=== PATIENT | female | born 1950 | race Caucasian/White ===

== ENCOUNTER → 2021-05-11 09:34 | Outpatient (CLI) | payer MEDICARE, OTHER, SELFPAY ==
[2021-05-11 12:16] LABS: ALB/GLOB Ratio 1.1 RATIO (0.9-2.4); AST(SGOT) 17 U/L (15-37); Alanine Aminotransfer ALT/SGPT 20 U/L (13-56); Albumin, Serum 3.9 g/dL (3.2-5.0); Alkaline Phosphatase 50 U/L (45-117); Anion Gap 4 (5-15); BUN 17 mg/dL (7-18); BUN/Creat Ratio 25.3 RATIO (10-20); Calcium,Total 9.2 mg/dL (8.5-10.1); Chloride 106 mmol/L (98-107); Creatinine, Serum 0.67 mg/dL (0.55-1.02); EST Glomerular Filtration Rate 91 mL/min (>60); Est Glom Filt Rate - Afr Amer 111 mL/min (>60); Globulin 3.5 g/dL (2.2-4.2); Glucose 78 mg/dL (74-106); Potassium 5.2 mmol/L (3.5-5.1); Protein, Total 7.4 g/dL (6.4-8.2); Sodium Level 140 mmol/L (136-145)
[2021-05-11 12:19] LABS: Vitamin D,25 Hydroxy 31.5 ng/mL
== END ==
PROVIDERS: PCP Family Medicine; Referring Provider Physician Assistant; Visit Provider Physician Assistant
DX: E55.9 Vitamin D deficiency, unspecified (principal); M81.0 Age-related osteoporosis without current pathological fracture
CPT/HCPCS: 36415; 80053; 82306

== ENCOUNTER → 2021-05-31 | Outpatient (CLI) | payer MEDICARE, OTHER, SELFPAY ==
[2021-05-31 09:54] LABS: Mucous, Urine 0 SEEN /hpf (<or=2+); Squamous Epithelial Cells - UA 0 SEEN /hpf (5-10)
[2021-05-31 12:20] LABS: Color, Urine Yellow (Yellow); Glucose, Dipstick Normal (Normal); Ketone-Dipstick Negative (Negative); Leukocyte Esterase-Dipstick 500 /ul (Negative); Nitrite-Dipstick Positive (Negative); Occult Blood-Urine 25 /ul (Negative); Protein-Dipstick Negative (Negative); Urine Clarity Clear (Clear); Urine Urobilinogen 4 mg/dl (Normal)
[2021-05-31 12:22] LABS: Urine Bilirubin Dipstick 3 mg/dL (Negative)
[2021-05-31 12:26] LABS: White Blood Cells 5-10 SEEN /hpf (0-5)
[2021-05-31 12:27] LABS: Bacteria 1+ /hpf (None Seen); Red Blood Cells-Urine 0-5 SEEN /hpf (0-5)
== END | disposition home or self-care (01) ==
PROVIDERS: PCP Family Medicine; Referring Provider Nurse Practitioner Family; Visit Provider Nurse Practitioner Family
DX: R30.0 Dysuria (principal)
CPT/HCPCS: 81001; 87086; 87088

== ENCOUNTER → 2021-06-14 | Outpatient (CLI) | payer MEDICARE, OTHER, SELFPAY ==
[2021-06-14 10:57] LABS: Bacteria 0 SEEN /hpf (None Seen); Mucous, Urine 0 SEEN /hpf (<or=2+); Red Blood Cells-Urine 0 SEEN /hpf (0-5); White Blood Cells 0 SEEN /hpf (0-5)
[2021-06-14 12:36] LABS: Color, Urine Yellow (Yellow); Glucose, Dipstick Normal (Normal); Ketone-Dipstick Negative (Negative); Leukocyte Esterase-Dipstick Negative /ul (Negative); Nitrite-Dipstick Negative (Negative); Occult Blood-Urine Negative /ul (Negative); Protein-Dipstick Negative (Negative); Urine Bilirubin Dipstick Negative (Negative); Urine Clarity Clear (Clear); Urine Urobilinogen Normal (Normal)
[2021-06-14 13:06] LABS: Squamous Epithelial Cells - UA 0-5 SEEN /hpf (5-10)
== END | disposition home or self-care (01) ==
LOC: LABSPEC 10:56
PROVIDERS: PCP Family Medicine; Referring Provider Family Medicine; Visit Provider Family Medicine
DX: N30.00 Acute cystitis without hematuria (principal)
CPT/HCPCS: 81001

== ENCOUNTER 2021-08-25 10:00 | Outpatient (CLI) | payer MEDICARE, OTHER, SELFPAY ==
[2021-08-25 10:03] LABS: Bacteria 0 SEEN /hpf (None Seen); Mucous, Urine 0 SEEN /hpf (<or=2+)
[2021-08-25 12:26] LABS: Color, Urine Yellow (Yellow); Glucose, Dipstick Normal (Normal); Ketone-Dipstick Negative (Negative); Leukocyte Esterase-Dipstick 100 /ul (Negative); Nitrite-Dipstick Positive (Negative); Occult Blood-Urine 250 /ul (Negative); Protein-Dipstick 15 mg/dl (Negative); Urine Bilirubin Dipstick Negative (Negative); Urine Clarity Sl. Cloudy (Clear); Urine Urobilinogen Normal (Normal)
[2021-08-25 12:37] LABS: Red Blood Cells-Urine 25-50 SEEN /hpf (0-5); Squamous Epithelial Cells - UA 0-5 SEEN /hpf (5-10); White Blood Cells 10-25 SEEN /hpf (0-5)
== END 2021-08-25 23:59 | disposition short-term general hospital (02) ==
LOC: LABSPEC 10:02
PROVIDERS: PCP Family Medicine; Referring Provider Physician Assistant; Visit Provider Physician Assistant
DX: N39.0 Urinary tract infection, site not specified (principal); R30.0 Dysuria
CPT/HCPCS: 81001; 87077; 87086; 87088

== ENCOUNTER 2021-10-19 15:37 | Outpatient (CLI) | payer MEDICARE, OTHER, SELFPAY ==
[2021-10-19 15:39] LABS: Mucous, Urine 0 SEEN /hpf (<or=2+)
[2021-10-19 16:40] LABS: Color, Urine Yellow (Yellow); Glucose, Dipstick Normal (Normal); Ketone-Dipstick Negative (Negative); Leukocyte Esterase-Dipstick 500 /ul (Negative); Nitrite-Dipstick Positive (Negative); Occult Blood-Urine 150 /ul (Negative); Protein-Dipstick Negative (Negative); Urine Bilirubin Dipstick Negative (Negative); Urine Clarity Sl. Cloudy (Clear); Urine Urobilinogen 1 mg/dl (Normal)
[2021-10-19 16:53] LABS: Amorphous Sediment 1+ PHOS; Bacteria RARE /hpf (None Seen); Red Blood Cells-Urine 10-25 SEEN /hpf (0-5); Squamous Epithelial Cells - UA 0-5 SEEN /hpf (5-10); White Blood Cells 25-50 SEEN /hpf (0-5)
== END 2021-10-19 23:59 | disposition home or self-care (01) ==
LOC: LABSPEC 15:38
PROVIDERS: PCP Family Medicine; Referring Provider Physician Assistant; Visit Provider Physician Assistant
DX: N39.0 Urinary tract infection, site not specified (principal); R30.0 Dysuria
CPT/HCPCS: 81001; 87086

== ENCOUNTER 2021-11-10 11:21 | Outpatient (CLI) | payer MEDICARE, OTHER, SELFPAY ==
[2021-11-10 11:23] LABS: Bacteria 0 SEEN /hpf (None Seen); Mucous, Urine 0 SEEN /hpf (<or=2+); Red Blood Cells-Urine 0 SEEN /hpf (0-5); Squamous Epithelial Cells - UA 0 SEEN /hpf (5-10); White Blood Cells 0 SEEN /hpf (0-5)
[2021-11-10 12:36] LABS: Color, Urine Yellow (Yellow); Glucose, Dipstick Normal (Normal); Ketone-Dipstick Negative (Negative); Leukocyte Esterase-Dipstick Negative /ul (Negative); Nitrite-Dipstick Negative (Negative); Occult Blood-Urine Negative /ul (Negative); Protein-Dipstick Negative (Negative); Urine Bilirubin Dipstick Negative (Negative); Urine Clarity Sl. Cloudy (Clear); Urine Urobilinogen Normal (Normal)
== END 2021-11-10 23:59 | disposition home or self-care (01) ==
PROVIDERS: PCP Family Medicine; Visit Provider Physician Assistant
DX: N39.0 Urinary tract infection, site not specified (principal)
CPT/HCPCS: 81001

== ENCOUNTER 2021-11-14 14:04 | Outpatient (CLI) | payer MEDICARE, OTHER, SELFPAY ==
[2021-11-14 15:24] LABS: Calcium,Total 8.6 mg/dL (8.5-10.1)
== END 2021-11-14 23:59 | disposition home or self-care (01) ==
LOC: BIMLAB 14:06
PROVIDERS: PCP Family Medicine; Referring Provider Family Medicine; Visit Provider Family Medicine
DX: M81.0 Age-related osteoporosis without current pathological fracture (principal)
CPT/HCPCS: 36415; 82310

== ENCOUNTER → 2022-06-19 | Outpatient (CLI) | payer MEDICARE, OTHER, SELFPAY ==
[2022-06-19 10:53] LABS: ALB/GLOB Ratio 1.1 RATIO (0.9-2.4); AST(SGOT) 16 U/L (15-37); Alanine Aminotransfer ALT/SGPT 21 U/L (13-56); Albumin, Serum 3.9 g/dL (3.2-5.0); Alkaline Phosphatase 53 U/L (45-117); Anion Gap 3 (5-15); BUN 19 mg/dL (7-18); BUN/Creat Ratio 29.3 RATIO (10-20); Calcium,Total 9.4 mg/dL (8.5-10.1); Chloride 107 mmol/L (98-107); Creatinine, Serum 0.65 mg/dL (0.55-1.02); EST Glomerular Filtration Rate 95 mL/min (>60); Est Glom Filt Rate - Afr Amer 115 mL/min (>60); Globulin 3.5 g/dL (2.2-4.2); Glucose 80 mg/dL (74-106); Potassium 5.2 mmol/L (3.5-5.1); Protein, Total 7.4 g/dL (6.4-8.2); Sodium Level 142 mmol/L (136-145)
[2022-06-19 10:54] LABS: Vitamin D,25 Hydroxy 42.1 ng/mL
== END | disposition home or self-care (01) ==
LOC: BIMLAB 09:33
PROVIDERS: PCP Family Medicine; Referring Provider Family Medicine; Visit Provider Family Medicine
DX: M81.0 Age-related osteoporosis without current pathological fracture (principal)
CPT/HCPCS: 36415; 80053; 82306

== ENCOUNTER → 2022-09-06 | Outpatient (CLI) | payer MEDICARE, OTHER, SELFPAY ==
[2022-09-06 16:11] LABS: Mucous, Urine 0 SEEN /hpf (<or=2+); Red Blood Cells-Urine 0 SEEN /hpf (0-5); Squamous Epithelial Cells - UA 0 SEEN /hpf (5-10)
[2022-09-06 16:56] LABS: Color, Urine Yellow (Yellow); Glucose, Dipstick Normal (Normal); Ketone-Dipstick Negative (Negative); Leukocyte Esterase-Dipstick 500 /ul (Negative); Nitrite-Dipstick Positive (Negative); Occult Blood-Urine Negative /ul (Negative); Protein-Dipstick Negative (Negative); Urine Bilirubin Dipstick Negative (Negative); Urine Clarity Clear (Clear); Urine Urobilinogen Normal (Normal)
[2022-09-06 17:03] LABS: Bacteria RARE /hpf (None Seen); White Blood Cells 0-5 SEEN /hpf (0-5)
== END | disposition home or self-care (01) ==
LOC: BIMLAB 16:09
PROVIDERS: PCP Family Medicine; Referring Provider Nurse Practitioner Family; Visit Provider Nurse Practitioner Family
DX: R30.0 Dysuria (principal)
CPT/HCPCS: 81001; 87086

== ENCOUNTER → 2022-10-26 | Outpatient (CLI) | payer MEDICARE, OTHER, SELFPAY ==
[2022-10-26 12:18] LABS: Color, Urine Yellow (Yellow); Glucose, Dipstick Normal (Normal); Ketone-Dipstick Negative (Negative); Leukocyte Esterase-Dipstick Negative /ul (Negative); Nitrite-Dipstick Negative (Negative); Occult Blood-Urine Negative /ul (Negative); Protein-Dipstick Negative (Negative); Urine Bilirubin Dipstick Negative (Negative); Urine Clarity Clear (Clear); Urine Urobilinogen Normal (Normal); Urine pH 6.5 (5.0 - 8.0)
== END | disposition home or self-care (01) ==
LOC: LABSPEC 10:05
PROVIDERS: PCP Family Medicine; Referring Provider Family Medicine; Visit Provider Family Medicine
DX: R30.0 Dysuria (principal)
CPT/HCPCS: 81002

== ENCOUNTER → 2022-12-18 | Outpatient (CLI) | payer MEDICARE, OTHER, SELFPAY ==
[2022-12-18 13:29] LABS: Calcium,Total 8.8 mg/dL (8.5-10.1); Creatinine, Serum 0.72 mg/dL (0.55-1.02); EST Glomerular Filtration Rate 84 mL/min (>60); Est Glom Filt Rate - Afr Amer 101 mL/min (>60)
== END | disposition home or self-care (01) ==
LOC: BIMLAB 11:03
PROVIDERS: PCP Family Medicine; Visit Provider Family Medicine
DX: M81.0 Age-related osteoporosis without current pathological fracture (principal)
CPT/HCPCS: 36415; 82310; 82565

== ENCOUNTER → 2022-12-27 | Outpatient (CLI) | payer MEDICARE, OTHER, SELFPAY ==
[2022-12-27 15:37] LABS: Bacteria 0 SEEN /hpf (None Seen); Mucous, Urine 0 SEEN /hpf (<or=2+); Red Blood Cells-Urine 0 SEEN /hpf (0-5); Squamous Epithelial Cells - UA 0 SEEN /hpf (5-10)
[2022-12-27 16:17] LABS: Color, Urine Yellow (Yellow); Glucose, Dipstick Normal (Normal); Ketone-Dipstick Negative (Negative); Leukocyte Esterase-Dipstick 500 /ul (Negative); Nitrite-Dipstick Positive (Negative); Occult Blood-Urine 10 /ul (Negative); Protein-Dipstick Negative (Negative); Urine Clarity Clear (Clear); Urine Urobilinogen 1 mg/dl (Normal)
[2022-12-27 16:56] LABS: Urine Bilirubin Dipstick 1 mg/dL (Negative); White Blood Cells 0-5 SEEN /hpf (0-5)
== END | disposition home or self-care (01) ==
PROVIDERS: PCP Family Medicine; Referring Provider Physician Assistant Surgical; Visit Provider Physician Assistant Surgical
DX: N39.0 Urinary tract infection, site not specified (principal); R30.0 Dysuria
CPT/HCPCS: 81001; 87086; 87088

== ENCOUNTER → 2023-03-25 | Outpatient (CLI) | payer MEDICARE, OTHER, SELFPAY ==
[2023-03-25 10:06] LABS: Bacteria 0 SEEN /hpf (None Seen); Mucous, Urine 0 SEEN /hpf (<or=2+)
[2023-03-25 10:07] LABS: Color, Urine Yellow (Yellow); Glucose, Dipstick Normal (Normal); Ketone-Dipstick Negative (Negative); Leukocyte Esterase-Dipstick Negative /ul (Negative); Nitrite-Dipstick Positive (Negative); Occult Blood-Urine Negative /ul (Negative); Protein-Dipstick Negative (Negative); Urine Bilirubin Dipstick Negative (Negative); Urine Clarity Sl. Cloudy (Clear); Urine Urobilinogen 1 mg/dl (Normal); Urine pH 6.5 (5.0 - 8.0)
[2023-03-25 10:33] LABS: Red Blood Cells-Urine 0-5 SEEN /hpf (0-5); Squamous Epithelial Cells - UA 0-5 SEEN /hpf (5-10); White Blood Cells 0-5 SEEN /hpf (0-5)
== END | disposition home or self-care (01) ==
LOC: LABSPEC 09:51
PROVIDERS: PCP Family Medicine; Referring Provider Physician Assistant Surgical; Visit Provider Physician Assistant Surgical
DX: N39.0 Urinary tract infection, site not specified (principal); R30.0 Dysuria
CPT/HCPCS: 81001; 87086

== ENCOUNTER → 2023-07-03 | Outpatient (CLI) | payer MEDICARE, OTHER, SELFPAY ==
[2023-07-03 13:20] LABS: ALB/GLOB Ratio 1.3 RATIO (0.9-2.4); AST(SGOT) 12 U/L (15-37); Alanine Aminotransfer ALT/SGPT 19 U/L (13-56); Albumin, Serum 3.8 g/dL (3.2-5.0); Alkaline Phosphatase 49 U/L (45-117); Anion Gap 4 (5-15); BUN 17 mg/dL (7-18); BUN/Creat Ratio 24.4 RATIO (10-20); Calcium,Total 8.7 mg/dL (8.5-10.1); Chloride 107 mmol/L (98-107); Cholesterol 149 mg/dL (200); EST Glomerular Filtration Rate 87 mL/min (>60); Est Glom Filt Rate - Afr Amer 106 mL/min (>60); Glucose 90 mg/dL (74-106); High Density Lipoprotein 70 mg/dL; Potassium 4.5 mmol/L (3.5-5.1); Protein, Total 6.8 g/dL (6.4-8.2); Sodium Level 139 mmol/L (136-145); Triglycerides 83 mg/dL; Very Low Density Lipoprotein 17 mg/dL (5-40)
== END | disposition home or self-care (01) ==
LOC: BIMLAB 08:39
PROVIDERS: PCP Family Medicine; Visit Provider Family Medicine
DX: M81.0 Age-related osteoporosis without current pathological fracture (principal); E78.5 Hyperlipidemia, unspecified
CPT/HCPCS: 36415; 80053; 80061

== ENCOUNTER → 2023-07-15 | Outpatient (CLI) | payer MEDICARE, OTHER, SELFPAY ==
[2023-07-15 12:49] LABS: Vitamin D,25 Hydroxy 42.7 ng/mL
== END | disposition home or self-care (01) ==
LOC: BIMLAB 09:02
PROVIDERS: PCP Family Medicine; Referring Provider Family Medicine; Visit Provider Family Medicine
DX: M81.0 Age-related osteoporosis without current pathological fracture (principal)
CPT/HCPCS: 36415; 82306

== ENCOUNTER → 2024-01-17 | Outpatient (CLI) | payer MEDICARE, OTHER, SELFPAY ==
--- NOTE | 2024-01-17 13:51 | US_ITS ---
STUDY: RENAL ULTRASOUND - COMPLETE REASON FOR EXAM: Female, 74 years old. UTI TECHNIQUE: Ultrasound evaluation of the kidneys was performed with real-time and static portillo-scale imaging. COMPARISON: None. FINDINGS: RIGHT KIDNEY: Normal location of the right kidney, which is normal in size. The right kidney measures 11.4 x 4.7 x 4.7 cm. There is a normal cortex of the right kidney. The renal cortex measures 1.9 cm. There is a large 7.7 cm lower pole cyst. There are no right renal calculi. There is no right hydronephrosis. DISTAL RIGHT URETER: There is non-visualization of the distal right ureter. There is no demonstrated right ureterovesical junction calculus. There is a visualized right ureteral jet. LEFT KIDNEY: Normal location of the left kidney, which is normal in size. The left kidney measures 10.2 x 4.4 x 4.8 cm. There is a normal cortex of the left kidney. The renal cortex measures 1.5 cm. There is no left renal mass or cyst. There are no left renal calculi. There is no left hydronephrosis. DISTAL LEFT URETER: There is non-visualization of the distal left ureter. There is no demonstrated left ureterovesical junction calculus. There is a visualized left ureteral jet. BLADDER: The distended urinary bladder has a volume of 332 ml. There is a normal wall thickness of the distended urinary bladder. There is no demonstrated mass within the urinary bladder. There are no demonstrated bladder calculi. US/Kidney and Bladder IMPRESSION: No acute abnormality. 7.7 cm cyst of the right kidney. Electronically Signed: Fransico Mcdowell MD at 22:53 EDT ,
== END | disposition home or self-care (01) ==
LOC: US 13:49
PROVIDERS: PCP Family Medicine; Referring Provider Urology; Visit Provider Urology
DX: N39.0 Urinary tract infection, site not specified (principal)
CPT/HCPCS: 76770

== ENCOUNTER → 2024-07-07 | Outpatient (CLI) | payer MEDICARE, OTHER, SELFPAY ==
[2024-07-07 15:33] LABS: Absolute Lymphocyte Count 2.06 X10^3/uL (0.83-4.51); Absolute Neutrophil Count 3.1 X10^3/uL (2.0-7.7); Basophil# 0.02 X10^3/uL; Basophil% 0.3 % (0-1); Eosinophil# 0.25 X10^3/uL; Eosinophils% 4.3 % (0-5); Hemoglobin 12.2 g/dL (12.0-15.0); Lymphocyte # 2.06 X10^3/ul (0.83-4.51); Lymphocyte % 35.6 % (19-41); Mean Corp Hgb Conc 32.1 g/dL (32-36); Mean Corpuscular Hgb 31.2 pg (27.0-32.0); Mean Corpuscular Volume 97.2 fL (81-99); Mean Platelet Vol. 10.4 fl (6.2-12.0); Monocyte# 0.38 X10^3/uL; Monocyte% 6.6 % (0-10); NRBC Flagged by Analyzer 0 % (0-5); Neutrophil # 3.06 X10^3/uL (2.7-7.7); Platelet Count 210 K/mm3 (150-450); RBC Distribution Width CV 12.3 % (11.6-14.6); RBC Distribution Width SD 43.8 fl (35.1-43.9); Red Blood Count 3.91 M/mm3 (4.2-5.4); White Blood Count 5.8 K/mm3 (4.4-11.0)
[2024-07-07 16:19] LABS: ALB/GLOB Ratio 1.1 RATIO (0.9-2.4); AST(SGOT) 20 U/L (15-37); Alanine Aminotransfer ALT/SGPT 21 U/L (13-56); Albumin, Serum 3.8 g/dL (3.2-5.0); Alkaline Phosphatase 57 U/L (45-117); Anion Gap 4 (5-15); BUN 23 mg/dL (7-18); BUN/Creat Ratio 30.2 RATIO (10-20); Calcium,Total 9.5 mg/dL (8.5-10.1); Chloride 106 mmol/L (98-107); Cholesterol 147 mg/dL (200); Creatinine, Serum 0.76 mg/dL (0.55-1.02); EST Glomerular Filtration Rate 78 mL/min (>60); Est Glom Filt Rate - Afr Amer 95 mL/min (>60); Globulin 3.4 g/dL (2.2-4.2); Glucose 107 mg/dL (74-106); High Density Lipoprotein 60 mg/dL; Potassium 5.2 mmol/L (3.5-5.1); Protein, Total 7.2 g/dL (6.4-8.2); Sodium Level 141 mmol/L (136-145); Triglycerides 132 mg/dL; Very Low Density Lipoprotein 26 mg/dL (5-40)
[2024-07-07 17:32] LABS: Vitamin D,25 Hydroxy 36.2 ng/mL
[2024-07-07 17:56] LABS: Hemoglobin A1c 5.2 % (3.8-5.6)
== END | disposition home or self-care (01) ==
LOC: BIMLAB 14:07
PROVIDERS: PCP Family Medicine; Referring Provider Family Medicine; Visit Provider Family Medicine
DX: Z00.00 Encounter for general adult medical examination without abnormal findings (principal); M81.0 Age-related osteoporosis without current pathological fracture
CPT/HCPCS: 36415; 80053; 80061; 82306; 83036; 85025

== ENCOUNTER → 2025-03-30 | Outpatient (CLI) | payer MEDICARE, OTHER, SELFPAY ==
--- OUTSIDE RECORDS SUMMARY | 2025-03-30 22:49 | XMS RPT_ITS | CCD ---
Author Organization [facility] Care Team Providers Care Fleet Salesperson Name Role Phone Dr. Christiano Mathis Primary Care Provider [phone] Dr. Christiano Mathis Referring Provider HARSH Herrmann Attending Provider Dr. Christiano Damon Primary Care Provider [phone] Dr. Christiano Mathis Attending Provider Dr. Christiano Mathis Referring Provider Dr. Christiano Mathis Primary Care Provider [phone] Dr. Christiano Mathis Attending Provider Dr. Christaino Mathis Referring Provider HARSH Herrmann Attending Provider Keenan Wright NP, SUPERVISOR TWISTING DEPARTMENT-C Giovani Attending Provider [phone] Dr. Christiano Mathis Primary Care Provider [phone] Dr. Christiano Mathis Referring Provider HARSH Herrmann Attending Provider Dr. Christiano Damon Attending Provider Raphael SUPERVISOR TWISTING DEPARTMENT, SUPERVISOR TWISTING DEPARTMENT-C Giovani Attending Provider [phone] Dr. Christiano Mathis Primary Care Provider [phone] Dr. Christiano Mathis Referring Provider HARSH Spain Attending Provider Dr. Christiano Mathis Primary Care Provider [phone] Dr. Christiano Mathis Referring Provider Dr. Pearl Hurst Attending Provider [phone] CHRISTIANO MATHIS DO Primary Care Physician Dr. Christiano Mathis Primary Care Provider [phone] Dr. Christiano Mathis Referring Provider [phone] HARSH Spain Attending Provider HARSH Howe Attending Provider Dr. Christiano Mathis Attending Provider [phone] AUTUMN CORTES, DR SHERICE Myrick Attending Unavailable BROWN DO, CHRISTIANO R Primary Care Unavailable BROWN DO, CHRISTIANO R Primary Care Unavailable BROWN DO, CHRISTIANO R Attending Unavailable BROWN DO, CHRISTIANO R Attending Unavailable BROWN DO, CHRISTIANO R Primary Care Unavailable BROWN DO, CHRISTIANO R Attending Unavailable DEL DO, CHRISTIANO R Primary Care Unavailable Del CORTES, Dr. Christiano Roblero Primary Care Provider Dr. Christiano Mathis DO Referring Provider [phone] NURSE, BIM Attending Provider Unavailable Brown, Christiano R Primary Care Unavailable Brown, Christiano R Referring Unavailable Brown, Christiano R Attending Unavailable Brown, Christiano R Primary Care Unavailable Brown, Christiano R Referring Unavailable Sameer Olea Attending Unavailable Brown, Christiano R Primary Care Unavailable Toby Castillo Attending Unavailable Brown, Christiano R Primary Care Unavailable Brown, Christiano R Referring Unavailable Aldo Calvo Attending Unavailable Brown, Christiano R Primary Care Unavailable Brown, Christiano R Referring Unavailable WaytAldo Attending Unavailable Brown, Christiano R Referring Unavailable Brown, Christiano R Attending Unavailable Brown, Christiano R Primary Care Unavailable Dr. Christiano Mathis DO Primary Care Provider [phone] Anthony SINGH, Dr. Alonso Attending Provider Dr. Sameer Olea MD Attending Provider [phone] Geno SUPERVISOR TWISTING DEPARTMENT-C, Darrell Attending Provider Medications Current Medications Medication Drug Class(es) Dates Sig (Normalized) Sig (Original) acetaminophen 325 mg / HYDROcodone bitartrate 5 mg oral tablet (1 source) Opioid Agonist Start: 07-22-2023 End: 07-25-2023 take 1 tablet by mouth twice daily Corona 325- 5 mg oral tablet Dose = 1 tab(s), Oral, BID, X 3 day(s), # 6 tab(s), 0 Refill(s), Rib fracture, 50 Start Date: 07/22/23 Stop Date: 07/25/23 Status: Ordered aspirin 81 mg chewable tablet (15 sources) Platelet Aggregation Inhibitor, Nonsteroidal Anti-inflammatory Drug Start: 06-07-2020 take 1 tablet by mouth once daily Aspirin (Brandi Chewable Aspirin) 81 mg tablet,chewable Active 81 mg PO DAILY June 07, 2020 1:00am Start: 02-04-2014 aspirin 81 mg oral delayed release tablet Dose : 81 mg = 1 tab(s), Oral, Daily, 0 Refill(s) Start Date: 02/04/14 Status: Ordered calcium carbonate 1500 mg oral tablet (12 sources) Start: 06-07-2020 take 1 tablet by mouth once daily Calcium Carbonate 600 mg calcium (1,500 mg) tablet Active 600 mg PO DAILY June 07, 2020 1:00am calcium carbonate 1500 mg / cholecalciferol 0.01 mg chewable tablet (3 sources) Vitamin D Start: 02-04-2014 take 1 tablet by mouth once daily calcium-vitamin D 600 mg-400 intl units oral tablet, chewable Dose = 1 tab(s), Chewed, Daily, # 60 tab(s), 0 Refill(s) Start Date: 02/04/14 Status: Ordered Cranberry (2 sources) Non-Standardized Food Allergenic Extract, Non-Standardized Plant Allergenic Extract Start: 07-07-2024 take 1 capsule by mouth twice daily at mealtime Cranberry 500 mg capsule Active 500 mg PO TWICE A DAY July 07, 2024 1:00am administer with meals lidocaine 0.05 mg/mg medicated patch (1 source) Antiarrhythmic, Amide Local Anesthetic Start: 07-22-2023 End: 07-29-2023 Lidoderm 5% topical patch Apply 1 patch(es), Topical, Daily, X 7 day(s), # 7 patch(es), 0 Refill(s), 50 Start Date: 07/22/23 Stop Date: 07/29/23 Status: Ordered meloxicam 7.5 mg oral tablet (2 sources) Nonsteroidal Anti-inflammatory Drug Start: 09-18-2024 take 1 tablet by mouth once daily Meloxicam 7.5 mg tablet Active 7.5 mg PO daily 30 0 September 18, 2024 1:00am Lgdgtrdx-Nvj-Hzrr-Fa- Lutein (Centrum Silver Women) 8 mg iron-400 mcg-300 mcg tablet (7 sources) Start: 06-07-2020 take 1 tablet by mouth once daily Eaprcfaz-Iux-Leb n-Fa-Lutein (Centrum Silver Women) 8 mg iron-400 mcg-300 mcg tablet Active 1 TABLET PO DAILY June 07, 2020 5:04pm Start: 06-07-2020 take 1 tablet by bismark th once daily Oubnxdtf-Pkk-Ulne-Fa-Lutein (Centrum Raven caroline Women) 8 mg iron-400 mcg-300 mcg tablet Active 1 TABLET PO DAILY June 07, 2020 1:00am Start: 06-07-2020 take 1 tablet by bismark th once daily Mcacnldf-Jqy-Arbo-Fa-Lutein (Centrum Raven caroline Women) 8 mg iron-400 mcg-300 mcg tablet Active 1 TABLET PO DAILY June 07, 2020 12:00am Kgmhioiu-Vtz-Umvn-Fa-Vit K-L ut (Centrum Silver Women) 8 mg iron-400 mcg-300 mcg tablet (5 sources) Start: 06-07-2020 Ehfhwmhq-Uqu-T shaye-Fa-Vit K-Lut (Centrum Silver Women) 8 mg iron-400 mcg-300 mcg tablet Active 1 {tbl} PO DAILY June 07, 2020 1:00am Start: 06-07-2020 take 1 tablet by bismark th once daily Qqtmsebk-Ebh-Wtid-Fa-Vit K-Lut (Centrum Silver Women) 8 mg iron-400 mcg-300 mcg tablet Active 1 TABLET PO DAILY June 07, 2020 12:00am Start: 06-07-2020 take 1 tablet by bismark th once daily Uuxgkhci-Rgx-Guqa-Fa-Vit K-Lut (Centrum Silver Women) 8 mg iron-400 mcg-300 mcg tablet Active 1 TABLET PO DAILY June 07, 2020 1:00am Multivitamin preparation (3 sources) Start: 02-04-2014 take 1 tablet by mouth once daily Multivitamin Dose = 1 tab(s), Oral, Daily, 0 Refill(s) Start Date: 02/04/14 Status: Ordered nitrofurantoin, macrocrystals 25 mg / nitrofurantoin, monohydrate 75 mg oral capsule (20 sources) Nitrofuran Antibacterial Start: 03-30-2025 take 1 capsule by mouth every twelve hours at mealtime Nitrofurantoin Monohyd/M-Cryst (Macrobid) 100 mg capsule Active 100 mg PO Q12H 10 5 0 March 30, 2025 12:00am April 03, 2025 12:00am must administer with a meal/food Start: 12-14-2023 End: 12-19-2023 take 1 capsule by mouth every twelve hours at mealtime Nitrofurantoin Monohyd/M-Cryst (Macrobid) 100 mg capsule Discontinued 100 mg PO Q12H 10 5 0 December 14, 2023 12:00am December 18, 2023 12:00am December 19, 2023 12:05am must administer with a meal/food Start: 10-01-2023 End: 10-08-2023 take 1 capsule by mouth every twelve hours at mealtime Nitrofurantoin Monohyd/M-Cryst (Macrobid) 100 mg capsule Discontinued 100 mg PO Q12H 14 7 0 October 01, 2023 8:57am October 07, 2023 12:00am October 08, 2023 12:07am must administer with a meal/food Start: 05-16-2023 End: 05-23-2023 take 1 capsule by mouth every twelve hours at mealtime Nitrofurantoin Monohyd/M-Cryst (Macrobid) 100 mg capsule Discontinued 100 mg PO Q12H 14 7 0 May 16, 2023 2:05pm May 22, 2023 12:00am May 23, 2023 12:04am must administer with a meal/food Start: 03-22-2023 End: 03-29-2023 take 1 capsule by mouth every twelve hours at mealtime Nitrofurantoin Monohyd/M-Cryst 100 mg capsule Discontinued 1 NMA PO Q12H 14 7 0 March 22, 2023 12:00am March 28, 2023 12:00am March 29, 2023 12:03am administer with a meal/food; swallow whole; do not open, crush, dissolve , or chew Start: 12-27-2022 End: 2023 take 1 capsule by mouth every twelve hours at mealtime Nitrofurantoin Monohyd/M-Cryst 100 mg capsule Discontinued 1 NMA PO Q12H 14 7 0 December 27, 2022 12:00am January 02, 2023 12:00am 2023 12:04am administer with a meal/food; swallow whole; do not open, crush, dissolve , or chew Start: 11-27-2022 End: 12-04-2022 take 1 capsule by mouth every twelve hours at mealtime Nitrofurantoin Monohyd/M-Cryst (Macrobid) 100 mg capsule Discontinued 100 mg PO Q12H 14 7 0 November 27, 2022 10:55am December 03, 2022 12:00am December 04, 2022 12:04am must administer with a meal/food Start: 09-06-2022 End: 09-13-2022 take 1 capsule by mouth every twelve hours at mealtime Nitrofurantoin Monohyd/M-Cryst (Macrobid) 100 mg capsule Discontinued 100 mg PO Q12H 14 7 0 September 06, 2022 1:00am September 12, 2022 1:00am September 13, 2022 1:04am must administer with a meal/food Start: 10-19-2021 End: 10-26-2021 take 1 capsule by mouth every twelve hours at mealtime Nitrofurantoin Monohyd/M-Cryst (Macrobid) 100 mg capsule Discontinued 100 mg PO Q12H 14 7 0 October 19, 2021 2:51pm October 25, 2021 12:00am October 26, 2021 12:03am must administer with a meal/food Start: 08-25-2021 End: 09-01-2021 take 1 capsule by mouth every twelve hours at mealtime Nitrofurantoin Monohyd/M-Cryst (Macrobid) 100 mg capsule Discontinued 100 mg PO Q12H 14 7 0 August 25, 2021 1:00am August 31, 2021 1:00am September 01, 2021 1:03am must administer with a meal/food Start: 05-31-2021 End: 06-05-2021 take 1 capsule by mouth every twelve hours at mealtime Nitrofurantoin Monohyd/M-Cryst (Macrobid) 100 mg capsule Discontinued 100 mg PO Q12H 10 5 0 May 31, 2021 12:00am June 04, 2021 12:00am June 05, 2021 1:01am must administer with a meal/food Start: 11-30-2020 End: 05-11-2021 take 1 capsule by mouth twice daily at mealtime Nitrofurantoin Monohyd/M-Cryst (Macrobid) 100 mg capsule Discontinued 100 mg PO TWICE A DAY 14 November 30, 2020 12:00am May 11, 2021 8:55am must administer with a meal/food Completed/Discontinued Medications Medication Drug Class(es) Dates Sig (Normalized) Sig (Original) amoxicillin 500 mg oral capsule (6 sources) Penicillin-class Antibacterial Start: 02-05-2024 End: 12-29-2024 take 1 capsule by mouth once as needed Amoxicillin 500 mg capsule Discontinued 500 mg PO ONCE 20 July 07, 2024 3:01pm December 29, 2024 8:11am As needed. benzonatate 200 mg oral capsule (2 sources) Non-narcotic Antitussive Start: 12-11-2023 End: 12-14-2023 take 1 capsule by mouth three times daily Benzonatate 200 mg capsule Discontinued 200 mg PO THREE TIMES A DAY 21 December 11, 2023 12:00am December 14, 2023 10:56am ciprofloxacin 500 mg oral tablet (14 sources) Quinolone Antimicrobial Start: 08-06-2023 End: 12-11-2023 take 1 tablet by mouth twice daily Ciprofloxacin Hcl 500 mg tablet Discontinued 500 mg PO TWICE A DAY 20 August 06, 2023 5:19pm December 11, 2023 1:56pm Start: 09-14-2020 End: 11-29-2020 take 1 tablet by mouth twice daily Ciprofloxacin Hcl 500 mg tablet Discontinued 500 mg PO TWICE A DAY 10 September 14, 2020 1:00am November 29, 2020 9:14am 1 ml denosumab 60 mg/ml prefilled syringe (20 sources) RANK Ligand Inhibitor Start: 05-15-2021 End: 05-15-2021 inject 60 mg by subcutaneous injection once Prolia (denosumab) 60 mg/mL subcutaneous syringe Discontinued 60 MG SC ONCE May 15, 2021 11:21am May 15, 2021 11:33am Start: 11-11-2020 End: 11-11-2020 inject 60 mg by subcutaneous injection once Prolia (denosumab) 60 mg/mL subcutaneous syringe Discontinued 60 MG SC ONCE November 11, 2020 4:31pm November 11, 2020 4:40pm Start: 03-31-2020 End: 09-27-2020 Denosumab (Prolia) 60 mg/mL syringe Active 60 mg SC every 6 months June 07, 2020 1:00am diclofenac sodium 0.01 mg/mg topical gel (12 sources) Nonsteroidal Anti-inflammatory Drug Start: 11-29-2020 End: 05-11-2021 apply 2 g topically twice daily Diclofenac Sodium (Voltaren) 1 % gel Discontinued 2 g TOPICAL ONCE 100 November 29, 2020 12:00am May 11, 2021 8:55am apply left knee twice daily Fluad Quad (65yr up)(PF) 60 mcg (15 mcg x 4)/0.5mL IM syringe (flu vac (3 sources) Start: 05-18-2021 End: 05-18-2021 Fluad Quad (65yr up)(PF) 60 mcg (15 mcg x 4)/0.5mL IM syringe (flu vac Discontinued 60 MCG IM ONCE 0.5 May 18, 2021 11:14am May 18, 2021 11:29am methylPREDNISolone 4 mg oral tablet (3 sources) Corticosteroid Start: 05-21-2023 End: 07-02-2023 take 1 tablet by mouth once Methylprednisolone (Medrol (Rito)) 4 mg tablets,dose pack Discontinued 0 PO per package directions May 21, 2023 12:00am July 02, 2023 9:23am PO PER PKG DIR sulfamethoxazole 800 mg / trimethoprim 160 mg oral tablet (12 sources) Dihydrofolate Reductase Inhibitor Antibacterial, Sulfonamide Antimicrobial Start: 11-29-2020 End: 05-11-2021 Sulfamethoxazole-Tri methoprim (Bactrim Ds) 800-160 mg tablet Discontinued 1 {tbl} PO TWICE A DAY 04 28November 29, 2020 12:00am May 11, 2021 8:55am Problems Active Problems Problem Classification Problem Date Documented Date Episodic/Chronic Abdominal hernia (3 sources) Hernia of anterior abdominal wall 03-12-2014 Episodic Allergic reactions (3 sources) Eczema 09-03-2019 Episodic Genitourinary symptoms and ill-defined conditions (19 sources) Dysuria; Translations: [Dysuria] Episodic Immunizations and screening for infectious disease (4 sources) Contact with or exposure to other viral diseases 05-21-2023 Episodic Nutritional deficiencies (3 sources) Vitamin D deficiency 05-31-2019 Chronic Osteoporosis (20 sources) Osteoporosis; Translations: [Age-related osteoporosis without current pathological fracture] Onset: 02-02-2025 Chronic Other connective tissue disease (12 sources) Suprapatellar bursitis of left knee; Translations: [Other bursitis of knee, left knee] 11-29-2020 Episodic Comment on above: Patient has very mil d symptoms and actually it is improved over the last several days but she is concerned because she is leaving on a trip. Other connective tissue disease (2 sources) Rotator cuff impingement syndrome; Translations: [Impingement syndrome of left shoulder] 09-18-2024 Episodic Other connective tissue disease (2 sources) Prepatellar bursitis of right knee; Translations: [Prepatellar bursitis, right knee] 12-26-2023 Episodic Other ear and sense organ disorders (2 sources) Excessive cerumen in ear canal ; Translations: [Impacted cerumen, left ear] 12-26-2023 Episodic Other ear and sense organ disorders (2 sources) Impacted cerumen; Translations: [Impacted cerumen, right ear] 12-26-2023 Episodic Other fractures (1 source) Closed fracture of one rib; Translations: [Fracture of one rib, unspecified side, initial encounter for closed fracture] Onset: 07-22-2023 Episodic Other fractures (2 sources) Fracture of multiple ribs ; Translations: [Multiple fractures of ribs, unspecified side, initial encounter for closed fracture] 07-24-2023 Episodic Other injuries and conditions due to external causes (2 sources) Costal cartilage injury; Translations: [Unspecified injury of thorax, initial encounter] 07-24-2023 Episodic Other lower respiratory disease (2 sources) Cough; Translations: [Cough] 12-11-2023 Episodic Other skin disorders (3 sources) Senile hyperkeratosis 09-03-2019 Episodic Other upper respiratory infections (6 sources) Upper respiratory infection; Translations: [Acute upper respiratory infection, unspecified] 05-21-2023 Episodic Residual codes; unclassified (3 sources) Requires vaccination 05-04-2020 Episodic Unclassified (3 sources) Antibiotic prophylaxis 09-03-2019 Urinary tract infections (20 sources) Acute cystitis; Translations: [Acute cystitis without hematuria] 09-06-2022 Episodic Viral infection (3 sources) Herpes zoster 03-17-2020 Episodic Past or Other Problems Problem Classification Problem Date Documented Da te Episodic/Chronic Other connective tissue disease (1 source) Impingement syndrome of left shoulder; Translations: [Impingement syndrome of left shoulder] Onset: 09-21-2024 Episodic Results Test Name Value Interpretation Reference Range Facility Office Visit Reporton 2024 Office Visit Report [facility] [address] [place] [address] OFFICE VISIT Date of Service: 01/28/25 MR#: [id number] Acct: [id number] Patient: TAMMI NETTLES Rep #: [id number] : 1950 Provider: NICOLAS NURSE Age/Sex: 75/F Location: [facility] Status: Signed Intake Vital Signs 09/21/24 10:21 Height 5 ft 2 in Intake Visit Reasons: PROLIA-$0 Chief Complaint: prolia shot Is patient in pain?: No Allergies No Known Allergies Allergy (Verified 01/28/25 13:39) Medications ???Medication ???Instructions ???Recorded ???Confirmed ???Type aspirin 81 mg chewable tablet 81 mg PO DAILY 06/07/20 01/28/25 H istory (Brandi Chewable Low Dose Aspirin) calcium carbonate 600 mg PO DAILY 06/07/20 01/28/25 History denosumab 60 mg/mL subcutaneous 60 mg subcut [id number] 06/07/2010/20 History syringe (Prolia) vrjlydww-ensi-ggtq 8 mg-folic 400 1 tab PO DAILY 06/07/20 01/28/25 History mcg-K 50 mcg-lutein 300 mcg tablet (Centrum Silver Women) cranberry 500 mg capsule 500 mg PO BID 07/07/24 01/28/25 Hi story meloxicam 7.5 mg tablet 7.5 mg PO QDAY #30 tabs 09/18/24 0 01/28/25 Rx amoxicillin 500 mg capsule 500 mg PO ONCE #20 caps 12/29/24 0 01/28/25 Rx Have you fallen in the past year?: No Nurse's Note: Left upper arm injection of prolia no signs or symptoms of reaction patient tolerated well Office Procedures Injections Is this a patient provided medication?: No Office Meds Prolia 60 mg/mL subcutaneous syringe Performing Provider: Pearl Hurst MD Performing Location: [facility] Administered by: Katy Mac on 01/28/25 13:41 Dose Route Admin Location Dispensed Lot Number Expiration Date [facility] Fernie ufacturer 60 mg subcut emmanuel 1 mL [id number] 07/28/27 [id number] AMGEN Assessment and Plan Assessment and Plan (1) Osteoporosis: Status: Acute Qualifiers: Osteoporosis type: age-related Presence of current pathological fracture: without current pathological fracture Qualified Code(s): M81.0 - Age-related osteoporosis without current pathological fracture Orders: Orders Prolia Injection Today M81.0 - Age-related osteoporosis without current pathological fracture Clinical Quality Measures Falls Risk Screening/Assistive Devices Have you fallen in the past year?: No 01/28/251943 Date Sameer Olea MD Cosigner Signature: Date (if applicable) CC: Normal [facility] Shoulder min 2 Viewson 09-21 Shoulder min 2 Views [facility] [address] [place], [place] [id number] Shoulder min 2 Views MR#: [id number] Acct: [id number] Name: TAMMI NETTLES Rep #: [id number] : 1950 F 74 From: Giovani Kate MD PCP: Dr. Christiano Mathis, DO Status: DEP AMB Study: Shoulder min 2 Views Date of Exam: 09/21/24 Exam# [id number] Ordering Dr: Aldo Calvo PA EXAM: XR Left Shoulder Complete, 2 or More Views CLINICAL INDICATION: TECHNIQUE: Two or more views of the left shoulder. COMPARISON: No relevant prior studies available. FINDINGS: BONES/JOINTS: Unremarkable. No acute fracture. No dislocation. SOFT TISSUES: Unremarkable. RAD/Shoulder min 2 Views IMPRESSION: No acute fracture. Reading [facility] CC: Dr. Christiano Mathis, DO; HARSH Bermudez Metal Sorter: Signed Normal [facility] Internal Medicine Office Vis iton 09-18-2024 Internal Medicine Office Visit [facility] [address] [place] [address] [place] [address] OFFICE VISIT Date of Service: 09/18/24 MR#: [id number] Acct: [id number] Name: TAMMI NETTLES Rep #: [id number] : 1950 Provider: HARSH Bermudez Age/Sex: 74/F Location: [facility] Status: Signed Intake Vital Signs 07/31/24 09:17 09/18/24 10:26 Height 5 ft 2 in 5 ft 2 in Weight: 111 lb 2 oz BMI 20.3 BP 98/52 L Blood Pressure Location Rt brachial Position Sitting Respiration 12 Pulse 75 Pulse Source Monitor Temp 96.1 F L Temp Source Temporal Pulse Oximetry (%) 99 Oxygen Delivery Method room air Intake Visit Reasons: ACUTE LEFT ARM PAIN ABOVE ELBOW Chief Complaint: PAIN IN ARM left arm between shoulder and elbow Window Glazier Helper Required: No Accompanied by: Self Is patient in pain?: Yes Allergies No Known Allergies Allergy (Verified 09/18/24 10:24) Medications ???Medication ???Instructions ???Recorded ???Confirmed ???Type aspirin 81 mg chewable tablet 81 mg PO DAILY 06/07/20 09/18/24 H istory (Brandi Chewable Low Dose Aspirin) calcium carbonate 600 mg PO DAILY 06/07/20 09/18/24 History denosumab 60 mg/mL subcutaneous 60 mg subcut [id number] 06/07/20 History syringe (Prolia) [id number] 8 mg-folic 400 1 tab PO DAILY 06/07/20 09/18/24 History mcg-K 50 mcg-lutein 300 mcg tablet (Centrum Silver Women) amoxicillin 500 mg capsule 500 mg PO ONCE #20 caps 07/07/24 0 09/18/24 Rx cranberry 500 mg capsule 500 mg PO BID 07/07/24 09/18/24 Hi story meloxicam 7.5 mg tablet 7.5 mg PO QDAY #30 tabs 09/18/24 0 09/18/24 Rx Have you fallen in the past year?: No Nurse's Note: pain has gotten better since appt was scheduled but still there with certain movements of arm [facility] Medical History Contact with or exposure to other viral diseases URI (upper respiratory infection) Cystitis Acute cystitis Dysuria Dysuria Osteopenia Osteoporosis History of UTI Seasonal allergies Surgical History History of hernia repair History of removal of ovarian cyst History of Family History Sister Osteoporosis Father Skin cancer Mother CVA (cerebral vascular accident) Grandmother CVA (cerebral vascular accident) Social History Smoking Status: Never smoker alcohol intake: never substance use type: does not use what type of physical activity do you participate in: walking, aerobics and weight training frequency: 5-6 times per week HPI HPI Chief Complaint: PAIN IN ARM left arm between shoulder and elbow Details: TAMMI NETTLES, is a 74 F who presents to the office today for left arm pains. PAtient states that she reached down to put salt and pepper shakers away and felt some immediate discomfort in the arm. There is no localized areas of pain but states that it is just the upper arm area (sometime in the shoulder area and sometimes in the mid arm area.) She did not have any swelling ore bruising or skin changes. She notices that this is worse after physical activities and she does notice that it is difficult to get comfortable at night sometime. She has noticed reaching across her body tends to hurt and/or doing her hair, or pulling the lever on the recliner. She has tried some heat and took some Ibuprofen ROS Const Constitutional: No body ache, excessive sweating, fatigue, fever(s), frequent falls, headache(s), snoring, weakness, weight change, sleep problems or change in appetite Eyes Eyes: No blurry vision, change in vision, eye pain or Light sensitivity ENT ENT: No abnormal hearing, ear or mastoid pain, tinnitus, nasal congestion, headache(s), neck pain or sore throat Resp Respiratory: No cough, shortness of breath, snoring or wheezing Cardio Cardiology: No chest pain at rest, chest pain with exertion, excessive sweating, shortness of breath, dyspnea on exertion, lightheadedness, orthopnea or palpitations Gastro GI: No abdominal pain, change in bowel habits, constipation, cramping, diarrhea, nausea/dyspepsia or vomiting Genitourinary-Femal e: No burning urination, painful urination, urinary incontinence, urinary frequency, blood in urine, abnormal periods or pelvic pain Musc Musculoskeletal: No abnormal gait, joint pain, back pain, limited range of motion, neck pain, numbness, stiffness, tingling or Arthritis Skin Skin: No dry skin, redness, lesions, itchy eyes, rash or wounds Neuro Neurology: No abnormal gait, abnormal hearing, abnormal speech, dizziness, weakness, frequent falls, headache(s), memory loss, numbness or tingling Psych Psychiatric: No anxiety, No change in ap (more content not included)... [facility] [facility] Office Visit Reporton 2024 Office Visit Report [facility] [address] [place] [address] OFFICE VISIT Date of Service: 07/31/24 MR#: [id number] Acct: [id number] Patient: TAMMI NETTLES Rep #: [id number] : 1950 Provider: NICOLAS NURSE Age/Sex: 74/F Location: [facility] [place] Status: Signed Intake Vital Signs 07/31/24 09:17 Height 5 ft 2 in Intake Visit Reasons: PROLIA-$0 Chief Complaint: prolia injection Allergies No Known Allergies Allergy (Verified 07/07/24 13:25) Have you fallen in the past year?: No Office Procedures Injections Site of injection: Sub-Q Is this a patient provided medication?: No Office Meds Prolia 60 mg/mL subcutaneous syringe Performing Provider: HARSH Reynolds Performing Location: [facility] Administered by: Liliana Robison MA on 07/31/24 10:07 Dose Route Admin Location Dispensed Lot Number Expiration Date [facility] Man ufacturer 60 mg subcut left subQ 1 mL [id number] 09/25/26 43623-410-60 AMGEN Assessment and Plan Assessment and Plan Orders: Orders Prolia Injection 07/31/24 M81.0 - Age-related osteoporosis without current pathological fracture Clinical Quality Measures Falls Risk Screening/Assistive Devices Have you fallen in the past year?: No 08/02/24 1342 Date Aldo Tolliver Signature: Date (if applicable) CC: Normal [facility] CBC W/Diff, Automatedon 12-1 0-4 Absolute Lymph 2.06 X10 3/uL Normal 0.83-4.51 [facility] Comment on above: Performed By: #### L 100.0100, L501.9985, L500.4050, L500.4100 #### [facility] [address] [place], [address] Absolute Neut 3.1 X10 3/uL Normal 2.0-7.7 [facility] Comment on above: Performed By: #### L 100.0100, L501.9985, L500.4050, L500.4100 #### [facility] [address] [place], [address] Basophils/100 WBC (Bld) 0.3 % Normal 0-1 [facility] Comment on above: Performed By: #### L 100.0100, L501.9985, L500.4050, L500.4100 #### [facility] [address] [place], [address] Eosinophils/100 WBC (Bld) 4.3 % Normal 0-5 [facility] Comment on above: Performed By: #### L 100.0100, L501.9985, L500.4050, L500.4100 #### [facility] [address] [place], [address] Erythrocyte distribution width (RBC) [Ratio] 12.3 % Normal 11.6-14.6 [facility] Comment on above: Performed By: #### L 100.0100, L501.9985, L500.4050, L500.4100 #### [facility] [address] [place], [address] Hematocrit (Bld) [Volume fraction] 38.0 % Normal 37-47 [facility] Comment on above: Performed By: #### L 100.0100, L501.9985, L500.4050, L500.4100 #### [facility] [address] [place], [address] Hemoglobin (Bld) [Mass/Vol] 12.2 g/dL Normal 12.0-15.0 [facility] Comment on above: Performed By: #### L 100.0100, L501.9985, L500.4050, L500.4100 #### [facility] [address] [place], [address] IG% 0.200 Normal 0.0-0.9 [facility] Comment on above: Result Comment: IG% - Immature Granulocytes (promyelocytes, myelocytes and metamyelocytes) > 1% indicates that a LEFT SHIFT is Present. Performed By: #### L 100.0100, L501.9985, L500.4050, L500.4100 #### [facility] [address] [place], [address] Lymphocytes/100 WBC (Bld) 35.6 % Normal 19-41 [facility] Comment on above: Performed By: #### L 100.0100, L501.9985, L500.4050, L500.4100 #### [facility] [address] [place], [address] MCH (RBC) [Entitic mass] 31.2 pg Normal 27.0-32.0 [facility] Comment on above: Performed By: #### L 100.0100, L501.9985, L500.4050, L500.4100 #### [facility] [address] [place], [address] MCHC (RBC) [Mass/Vol] 32.1 g/dL Normal 32-36 [facility] Comment on above: Performed By: #### L 100.0100, L501.9985, L500.4050, L500.4100 #### [facility] [address] [place], [address] MCV (RBC) [Entitic vol] 97.2 fL Normal 81-99 [facility] Comment on above: Performed By: #### L 100.0100, L501.9985, L500.4050, L500.4100 #### [facility] [address] [place], [address] Monocytes/100 WBC (Bld) 6.6 % Normal 0-[address] [facility] Comment on above: Performed By: #### L 100.0100, L501.9985, L500.4050, L500.4100 #### [facility] [address] [place], [address] Neutrophils/100 WBC (Bld) 53.0 % Normal 47-70 [facility] Comment on above: Performed By: #### L 100.0100, L501.9985, L500.4050, L500.4100 #### [facility] [address] [place], [address] Nucleated RBC (Bld) [#/Vol] 0 10*3/uL Normal 0-5 [facility] Comment on above: Performed By: #### L 100.0100, L501.9985, L500.4050, L500.4100 #### [facility] [address] [place], [address] Platelet mean volume (Bld) [Entitic vol] 10.4 fL Normal 6.2-12.0 [facility] Comment on above: Performed By: #### L 100.0100, L501.9985, L500.4050, L500.4100 #### [facility] [address] [place], [address] Platelets (Bld) [#/Vol] 210 10*3/uL Normal 150-450 [facility] Comment on above: Performed By: #### L 100.0100, L501.9985, L500.4050, L500.4100 #### [facility] [address] [place], [address] RBC (Bld) [#/Vol] 3.91 10*6/uL Low 4.2-5.4 [facility] Comment on above: Performed By: #### L 100.0100, L501.9985, L500.4050, L500.4100 #### [facility] [address] [place], [address] RDW SD 43.8 fl Normal 35.1-43.9 [facility] Comment on above: Performed By: #### L 100.0100, L501.9985, L500.4050, L500.4100 #### [facility] [address] [place], [address] WBC (Bld) [#/Vol] 5.8 10*3/uL Normal 4.4-11.0 [facility] Comment on above: Performed By: #### L 100.0100, L501.9985, L500.4050, L500.4100 #### [facility] [address] [place], [address] Comprehensive Metabolic Prof ilon 07-07-2024 Albumin [Mass/Vol] 3.8 g/dL Normal 3.2-5.0 [facility] Comment on above: Performed By: #### L 100.0100, L501.9985, L500.4050, L500.4100 #### [facility] [address] [place], [address] Albumin/Globulin [Mass ratio] 1.1 {ratio} Normal 0.9-2.4 [facility] Comment on above: Performed By: #### L 100.0100, L501.9985, L500.4050, L500.4100 #### [facility] [address] [place], [address] ALK P 57 U/L Normal 45-117 [facility] Comment on above: Performed By: #### L 100.0100, L501.9985, L500.4050, L500.4100 #### [facility] [address] [place], [address] ALT [Catalytic activity/Vol] 21 U/L Normal 13-56 [facility] Comment on above: Performed By: #### L 100.0100, L501.9985, L500.4050, L500.4100 #### [facility] [address] [place], [address] AST [Catalytic activity/Vol] 20 U/L Normal 15-37 [facility] Comment on above: Performed By: #### L 100.0100, L501.9985, L500.4050, L500.4100 #### [facility] [address] [place], [address] Bilirubin [Mass/Vol] 0.30 mg/dL Normal 0.20-1.00 [facility] Comment on above: Result Comment: For patients on eltrombopag therapy, use of Dimension [place] TBIL is not recommended. Performed By: #### L 100.0100, L501.9985, L500.4050, L500.4100 #### [facility] [address] [place], [address] BUN/CRE 30.2 RATIO High 10-20 [facility] Comment on above: Performed By: #### L 100.0100, L501.9985, L500.4050, L500.4100 #### [facility] [address] [place], [address] CA,Total 9.5 mg/dL Normal 8.5-10.1 [facility] Comment on above: Performed By: #### L 100.0100, L501.9985, L500.4050, L500.4100 #### [facility] [address] [place], [address] Chloride [Moles/Vol] 106 mmol/L Normal 98-107 [facility] Comment on above: Performed By: #### L 100.0100, L501.9985, L500.4050, L500.4100 #### [facility] [address] [place], [address] CO2 [Moles/Vol] 31.0 mmol/L Normal 21.0-32.0 [facility] Comment on above: Performed By: #### L 100.0100, L501.9985, L500.4050, L500.4100 #### [facility] [address] [place], [address] Creatinine [Mass/Vol] 0.76 mg/dL Normal 0.55-1.02 [facility] Comment on above: Result Comment: The validity of the calculated GFR GFRAA in patients over 70 years has not been determined. Clinical correlation is essential. Performed By: #### L 100.0100, L501.9985, L500.4050, L500.4100 #### [facility] [address] [place], [address] EST GFR - AA 95 mL/min Normal >60 [facility] Comment on above: Result Comment: Afri can [place] GFR Calc Performed By: #### L 100.0100, L501.9985, L500.4050, L500.4100 #### [facility] [address] [place], [address] GAP 4 Low 5-15 [facility] Comment on above: Performed By: #### L 100.0100, L501.9985, L500.4050, L500.4100 #### [facility] [address] [place], [address] GFR/1.73 sq M.predicted among non-blacks MDRD (S/P/Bld) [Vol rate/Area] 78 mL/min/{1.73_m2} Normal >60 [facility] Comment on above: Result Comment: Non- GFR Calc Performed By: #### L 100.0100, L501.9985, L500.4050, L500.4100 #### [facility] [address] [place], [address] Globulin (S) [Mass/Vol] 3.4 g/dL Normal 2.2-4.2 [facility] Comment on above: Performed By: #### L 100.0100, L501.9985, L500.4050, L500.4100 #### [facility] [address] [place], [address] Glucose [Mass/Vol] 107 mg/dL High 74-106 [facility] Comment on above: Result Comment: Fast ing Glucose result from 100 to 125 mg/dL suggests IMPAIRED HOMEOSTASIS per A.D.A. criteria. Performed By: #### L 100.0100, L501.9985, L500.4050, L500.4100 #### [facility] [address] [place], [address] Potassium [Moles/Vol] 5.2 mmol/L High 3.5-5.1 [facility] Comment on above: Performed By: #### L 100.0100, L501.9985, L500.4050, L500.4100 #### [facility] [address] [place], [address] Sodium [Moles/Vol] 141 mmol/L Normal 136-145 [facility] Comment on above: Performed By: #### L 100.0100, L501.9985, L500.4050, L500.4100 #### [facility] [address] [place], [address] T PROT 7.2 g/dL Normal 6.4-8.2 [facility] Comment on above: Performed By: #### L 100.0100, L501.9985, L500.4050, L500.4100 #### [facility] [address] [place], [address] Urea nitrogen [Mass/Vol] 23 mg/dL High 7-18 [facility] Comment on above: Performed By: #### L 100.0100, L501.9985, L500.4050, L500.4100 #### [facility] [address] [place], [address] Hemoglobin A1con 07-07-2024 HbA1c (Bld) [Mass fraction] 5.2 % Normal 3.8-5.6 [facility] Comment on above: Result Comment: Norm al < 5.7 % Prediabetic 5.7 - 6.4 % Diabetic >or= 6.5 % Please note range changes. Performed By: #### L 100.0100, L501.9985, L500.4050, L500.4100 #### [facility] [address] [place], [address] Internal Medicine Office Vis adiel 07-07-2024 Internal Medicine Office Visit [facility] [address] [place] [address] [place] [address] OFFICE VISIT Date of Service: 07/07/24 MR#: [id number] Acct: [id number] Name: TAMMI NETTLES Rep #: [id number] : 1950 Provider: Dr. 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 Accompanied by: Self Is patient in pain?: No Allergies No Known Allergies Allergy (Verified 07/07/24 13:25) Medications ???Medication ???Instructions ???Recorded ???Confirmed ???Type aspirin 81 mg chewable tablet 81 mg PO DAILY 06/07/20 07/07/24 History (Brandi Chewable Low Dose Aspirin) calcium carbonate 600 mg PO DAILY 06/07/20 07/07/24 History denosumab 60 mg/mL subcutaneous 60 mg subcut [id number] 06/07/20 07/07/24 History syringe (Prolia) [id number]-tjas-eqpr 8 mg-folic 400 1 tab PO DAILY 06/07/20 07/07/24 History mcg-K 50 mcg-lutein 300 mcg tablet (Centrum Silver Women) amoxicillin 500 mg capsule 500 mg PO ONCE #20 caps 07/07/24 07/07/24 Rx cranberry 500 mg capsule 500 mg PO BID 07/07/24 07/07/24 History Have you fallen in the past year?: No PFSH Medical History Contact with or exposure to other viral diseases URI (upper respiratory infection) Cystitis Acute cystitis Dysuria Dysuria Osteopenia Osteoporosis History of UTI Seasonal allergies Surgical History History of hernia repair History of removal of ovarian cyst History of Family History Sister Osteoporosis Father Skin cancer Mother CVA (cerebral vascular accident) Grandmother CVA (cerebral vascular accident) Social History Smoking Status: Never smoker alcohol intake: never substance use type: does not use what type of physical activity do you participate in: walking, aerobics and weight training frequency: 5-6 times per week HPI HPI Chief Complaint: annual Details: TAMMI NETTLES, is a 74 F who presents to the office today for ROS Const Constitutional: No body ache, chills, excessive sweating, fatigue, fever(s), frequent falls, headache(s), snoring, weakness or change in appetite Eyes Eyes: No blurry vision, change in vision, eye pain or Light sensitivity ENT ENT: No abnormal hearing, ear or mastoid pain, tinnitus, nasal congestion, headache(s), neck pain or sore throat Resp Respiratory: No cough, shortness of breath, snoring or wheezing Cardio Cardiology: No chest pain at rest, chest pain with exertion, excessive sweating, dyspnea on exertion, lightheadedness, orthopnea or palpitations Gastro GI: No abdominal pain, change in bowel habits, constipation, cramping, diarrhea, nausea/dyspepsia or vomiting Genitourinary-Femal e: No burning urination, painful urination, urinary incontinence or urinary frequency Musc Musculoskeletal: No abnormal gait, joint pain, back pain, limited range of motion, muscle weakness, neck pain or numbness Skin Skin: No dry skin, redness, lesions, itchy eyes, rash or wounds Neuro Neurology: No abnormal gait, abnormal hearing, weakness, frequent falls, headache(s), memory loss or numbness Psych Psychiatric: No anxiety, No change in appetite, No depression, No memory loss and No Thoughts of harming yourself/Others Endo Endocrine: No cold intolerance, excessive sweating, fatigue, flushing, heat intolerance, increased thirst/drinking or increased hunger Aller/Imm Allergy/Immunologic : No itchy eyes, seasonal allergy symptoms, hives or wheezing Perez/Lymp Hematologic/Lymphat ic: No easy bleeding or easy bruising Exam Const General: cooperative, healthy appearing and no acute distress Nutritional Appearance: thin Orientation: alert, awake and oriented x3 HENMT Head: normal to inspection Ears: hearing grossly normal bilaterally, external ears normal, TM's normal bilaterally and EAC's normal Nose: external nose normal, nares normal, septum normal and no nasal discharge Face and sinus: normal facial exam, sinuses nontender and face symmetric Mouth: oral mucosae normal, lip normal, tongue normal and oropharynx normal Throat: posterior oropharynx normal, tonsils normal, uvula midline and no postnasal drainage E (more content not included)... Normal [facility] Lipid Profileon 07-07-2024 Cholesterol [Mass/Vol] 147 mg/dL Normal 200 [facility] Comment on above: Result Comment: <200 mg/dL Desirable 200-240 mg/dL Borderline >240 mg/dL High Risk Performed By: #### L 100.0100, L501.9985, L500.4050, L500.4100 #### [facility] [address] [place], [address] Cholesterol in HDL [Mass/Vol] 60 mg/dL Normal [facility] Comment on above: Result Comment: The drugs N-Acetylcysteine and Metamizole may falsely depress this assay. Reference Range HDL <40 mg/dL Low HDL Cholesterol HDL >or= 60 mg/dL High HDL Cholesterol Performed By: #### L 100.0100, L501.9985, L500.4050, L500.4100 #### [facility] [address] [place], [address] Cholesterol in LDL [Mass/Vol] 61 mg/dL Normal 0-130 [facility] Comment on above: Performed By: #### L 100.0100, L501.9985, L500.4050, L500.4100 #### [facility] [address] [place], [address] Cholesterol in VLDL [Mass/Vol] 26 mg/dL Normal 5-40 [facility] Comment on above: Performed By: #### L 100.0100, L501.9985, L500.4050, L500.4100 #### [facility] [address] [place], [address] Triglyceride [Mass/Vol] 132 mg/dL Normal [facility] Comment on above: Result Comment: The drugs N-Acetylcysteine and Metamizole may falsely depress this assay. Serum Triglycerides Reference Interval Normal <150 mg/dL Borderline high 150 - 199 mg/dL High 200 - 499 mg/dL Very High > or = 500 mg/dL Performed By: #### L 100.0100, L501.9985, L500.4050, L500.4100 #### [facility] [address] [place], [address] Vitamin D,25 Hydroxyon 07-07 Vitamin D 25-OH 36.2 ng/mL Normal [facility] Comment on above: Result Comment: Yolanda min D 25(OH) Status Range Deficiency <20 ng/mL (50nmol/L) Insufficiency 20 - 30 ng/mL (50 - 75 nmol/L) Sufficiency 30 - 100 ng/mL (75 - 250 nmol/L) Toxicity >100 ng/mL (>250 nmol/L) Performed By: #### L 506.1000 #### [facility] [address] [place], [place], [address] MA MAMMOGRAM SCREENING BILAT ERAL W/TOMOon 04-18-2024 MA MAMMOGRAM SCREENING BILATERAL W/MALATHI ORIGINAL FROM: [place]AN [address] [address] PROCEDURE FOR: TAMMI NETTLES [address] [place] [id number] Home: PID#: [id number] Exam#: [id number] : 1950 Age: 74 TO: CHRISTIANO MATHIS DO [address] [place], [place] [address] EXAMINATION: SCREENING DIGITAL BILATERAL MAMMOGRAM WITH TOMOSYNTHESIS, 04/14/2024 10:17 am TECHNIQUE: Screening mammography of the bilateral breasts was performed with tomosynthesis. 2D standard and 3D tomosynthesis combination imaging performed through both breasts in the MLO and CC projection. Computer aided detection was utilized in the interpretation of this exam. COMPARISON: 05/01/2022 HISTORY: Breast cancer screening. FINDINGS: BREAST DENSITY: There are scattered areas of fibroglandular density. There are no significant masses or calcifications. IMPRESSION: No mammographic evidence of malignancy. Continued screening with annual mammograms is recommended. [facility] risk calculations, generated with the history provided, report this patient's lifetime risk for developing breast cancer at 2.2%. Based on this assessment tool, if the patient's calculated lifetime risk is below 20%, then the patient is considered at average risk for developing breast cancer. If the patient's calculated lifetime risk is at or above 20%, then the patient is considered high risk for developing breast cancer and may be a candidate for supplemental breast MRI screening in addition to annual mammographic screening per the [employer] [employer]. BIRADS: BI-RADS: 1: Negative RECALL: 1 year screening RECALL TYPE: mammo LETTER SENT: Normal BI-RADS 1 and 2 Interpreted by: Vladislav Rust MD Preliminary Report By: Vladislav Rust MD Electronically signed By Vladislav Rust MD Dictated Date: 04/18/2024 5:46:30 AM Prelim Date: 04/18/2024 6:03:10 AM Sign Date: 04/18/2024 6:03:10 AM Ordering Provider: CHRISTIANO MATHIS Basic Combat[employer] Swimmer: NARENDRA WRIGHT RT (R)(M) letter sent: Normal BI-RADS 1 and 2 Mammogram BI-RADS: 1 Negative Normal [facility] XR RIBS 2 VIEWS LEFT/PA CHES T(AO)on 07-22-2023 XR RIBS 2 VIEWS LEFT/PA CHEST(AO) ORIGINAL EXAMINATION: 3 XRAY VIEWS OF LEFT RIBS WITH 1 XRAY VIEWS OF THE CHEST 07/22/2023 3:51 am COMPARISON: None. HISTORY: ORDERING SYSTEM PROVIDED HISTORY: Reason for Exam: pain Injury due to a fall. FINDINGS: Chest x-ray demonstrates the heart size is normal. The lungs are well aerated with no infiltrate or edema. There is no pleural fluid or pneumothorax. X-rays of the left ribs demonstrate mildly displaced fractures of the left 5th and 6th ribs laterally and a nondisplaced fracture of the left 7th rib laterally. No soft tissue gas is seen in the chest wall. IMPRESSION: Acute fractures of left 5th, 6th, and 7th ribs. No acute cardiopulmonary findings. Interpreted by: Christophe Mooney MD Preliminary Report By: Christophe Mooney MD Electronically signed By Christophe Mooney MD Dictated Date: 07/22/2023 3:56:26 AM Prelim Date: 07/22/2023 4:00:49 AM Sign Date: 07/22/2023 4:00:49 AM Ordering Provider: SHERICE LEYVA [facility] (MD) Basophil percentageOrdered B y: Christiano Del on 07-03-2023 Bilirubin [Mass/Vol] 0.80 mg/dL 0.20-1.00 [facility] Comment on above: For patients on eltr ombopag therapy, use of Dimension [place] TBIL is not recommended. Chloride [Moles/Vol] 107 mmol/L 98-107 [facility] Cholesterol [Mass/Vol] 149 mg/dL <200 [facility] Comment on above: <200 mg/dL Desirable 200-240 mg/dL Borderline >240 mg/dL High Risk Glucose [Mass/Vol] 90 mg/dL 74-106 [facility] Potassium [Moles/Vol] 4.5 mmol/L 3.5-5.1 [facility] Protein [Mass/Vol] 6.8 g/dL 6.4-8.2 [facility] Sodium [Moles/Vol] 139 mmol/L 136-145 [facility] Triglyceride [Mass/Vol] 83 mg/dL <[address] [facility] Comment on above: The drugs N-Acetylcy steine and Metamizole may falsely depress this assay.Serum Triglycerides Reference Interval Normal <150 mg/dL Borderline high 150 - 199 mg/dL High 200 - 499 mg/dL Very High > or = 500 mg/dL Laboratory - Chemistry and C hemistry - challengeOrdered By: Christiano Mathis on 07-03-2023 ALP [Catalytic activity/Vol] 49 U/L 45-117 [facility] ALT [Catalytic activity/Vol] 19 U/L 13-56 [facility] CO2 [Moles/Vol] 28.0 mmol/L 21.0-32.0 [facility] Globulin (S) [Mass/Vol] 3.0 g/dL 2.2-4.2 [facility] Urea nitrogen/Creatinine [Mass ratio] 24.4 mg/mg 10-20 [facility] No Panel InformationOrdered By: Christiano Mathis on 07-03-2023 Estimated GFR (MDRD) Amer 106 mL/min >60 [facility] Comment on above: GFR Calc Estimated GFR (MDRD) Non-Af Amer 87 mL/min >60 [facility] Comment on above: Non- GFR Calc Serum or plasma albumin corrina urement (mass/volume)Ordered By: Christiano Mathis on 07-03-2023 Albumin [Mass/Vol] 3.8 g/dL 3.2-5.0 [facility] Serum or plasma albumin/glob ulin mass ratioOrdered By: Christiano Mathis on 07-03-2023 Albumin/Globulin [Mass ratio] 1.3 {ratio} 0.9-2.4 [facility] Serum or plasma calcium corrina urement (mass/volume)Ordered By: Christiano Mathis on 07-03-2023 Calcium [Mass/Vol] 8.7 mg/dL 8.5-10.1 [facility] Serum or plasma cholesterol in HDL measurement (mass/volume)Ordered By: Christiano Mathis on 07-03-2023 Cholesterol in HDL [Mass/Vol] 70 mg/dL >40 [facility] Comment on above: The drugs N-Acetylcy steine and Metamizole may falsely depress this assay. Reference Range HDL <40 mg/dL Low HDL Cholesterol HDL >or= 60 mg/dL High HDL Cholesterol Serum or plasma cholesterol in VLDL measurement (mass/volume)Ordered By: Christiano Mathis on 07-03-2023 Cholesterol in VLDL [Mass/Vol] 17 mg/dL 5-40 [facility] Serum or plasma creatinine m easurement (mass/volume)Ordered By: Christiano Mathis on 07-03-2023 Creatinine [Mass/Vol] 0.70 mg/dL 0.55-1.02 [facility] Comment on above: The validity of the calculated GFR & GFRAA in patients over 70 years has not been determined. Clinical correlation is essential. Serum or plasma low density lipoprotein (LDL) cholesterol measurement (mass/volume)Ordered By: Christiano Mathis on 07-03-2023 Cholesterol in LDL [Mass/Vol] 62 mg/dL 0-130 [facility] Serum or plasma urea nitroge n measurement (mass/volume)Ordered By: Christiano Mathis on 07-03-2023 Urea nitrogen [Mass/Vol] 17 mg/dL 7-18 [facility] Thin prep Papanicolaou smear with manual screeningOrdered By: Christiano Mathis on 07-03-2023 Thin prep Papanicolaou smear with manual screening 12 U/L 15-37 [facility] Thin prep Papanicolaou smear with manual screening 4 5-15 [facility] No Panel Informationon 05-21 POC SARS CoV-2 Antigen Negative [facility] BD BONE DENSITY DEXA AXIAL S KELETONon 04-22-2023 BD BONE DENSITY DEXA AXIAL SKELETON ORIGINAL EXAMINATION: BONE DENSITOMETRY 04/22/2023 1:22 pm TECHNIQUE: A bone density dual x-ray absorptiometry (DEXA) scan was performed of the lumbar spine and left hip. COMPARISON: 01/16/2021. HISTORY: ORDERING SYSTEM PROVIDED HISTORY: Reason for Exam: osteoporosis FINDINGS: BMD (g/cm2) Lumbar Spine L1-L4: 0.953. T Score Lumbar Spine L1-L4: -0.9 BMD (g/cm2) Left Femoral Neck: 0.608. T Score Left Femoral Neck: -2.2 BMD (g/cm2) Left Hip: 0.726. T Score Left Hip: -1.8 BMD Change from previous Hip: -1.6% BMD Change from previous Lumbar spine: 8.8% FRAX: 10 year fracture risk assessment Major osteoporotic fracture: 12% Hip fracture: 3.5% IMPRESSION: Osteopenia by WHO criteria. *By the World Health Organization criteria: (Comparing with young normal sex matched population) - Normal: T-score at or above -1 SD (standard deviation) - Osteopenia: T-score between -1 and -2.5 SD - Osteoporosis: T-score at or below -2.5 SD Interpreted by: Nelson Lagunas DO Preliminary Report By: Nelson Lagunas DO Electronically signed By Nelson Bitonte, DO Dictated Date: 04/22/2023 2:34:57 PM Prelim Date: 04/22/2023 2:35:47 PM Sign Date: 04/22/2023 2:35:47 PM Ordering Provider: CHRISTIANO Escamilla [facility] (MD) Basophil percentageOrdered B y: Alexis Villatoro on 03-25-2023 Basophil percentage 0-5 SEEN /hpf 0-5 [facility] Bilirubin Test strip Ql (U)O rdered By: Alexis Villatoro on 03-25-2023 Bilirubin Ql (U) Negative Negative [facility] Culture, urineOrdered By: Forrest Villatoro on 03-25-2023 Bacteria identified Cx Nom (U) Culture exhibits no growth. [facility] Bacteria identified Cx Nom (U) Culture exhibits no growth. [facility] Ketones Test strip Ql (U)Ord ered By: Alexis Villatoro on 03-25-2023 Ketones Ql (U) Negative Negative [facility] Mucus LM Ql (Urine sed)Order ed By: Alexis Villatoro on 03-25-2023 Mucus Ql (Urine sed) 0 SEEN /hpf [facility] Nitrite Test strip Ql (U)Ord ered By: Alexis Villatoro on 03-25-2023 Nitrite Ql (U) Positive Negative [facility] Protein Test strip Ql (U)Ord ered By: Alexis Villatoro on 03-25-2023 Protein Ql (U) Negative Negative [facility] Squamous epithelial cells de tection in urine sediment by light microscopyOrdered By: Alexis Villatoro on 03-25-2023 Epithelial cells.squamous LM Ql (Urine sed) 0-5 SEEN /hpf 5-10 [facility] Urine blood detectionOrdered By: Alexis Villatoro on 03-25-2023 RBC Ql (U) Negative Negative [facility] RBC Ql (U) 0-5 SEEN /hpf 0-5 [facility] Urine clarityOrdered By: Antoine Villatoro on 03-25-2023 Clarity (U) Sl. Cloudy Clear [facility] Urine color determinationOrd ered By: Alexis Villatoro on 03-25-2023 Color (U) Yellow Yellow [facility] Urine glucose detectionOrder ed By: Alexis Villatoro on 03-25-2023 Glucose Ql (U) Normal mg/dl Normal [facility] Urine leukocyte esterase det ection by dipstickOrdered By: Alexis Villatoro on 03-25-2023 Leukocyte esterase Test strip Ql (U) Negative Negative [facility] Urine pHOrdered By: Alexis sorto on 03-25-2023 pH (U) 6.5 [pH] 5.0 - 8.0 [facility] Urine sediment bacteria coun t by microscopy (number/high power field)Ordered By: Alexis Villatoro on 03-25-2023 Bacteria LM.HPF (Urine sed) [#/Area] 0 /[HPF] None Seen [facility] Urine specific gravity measu rementOrdered By: Alexis Villatoro on 03-25-2023 Specific gravity (U) [Rel density] 1.010 1.002-1.030 [facility] Urobilinogen Auto test strip Ql (U)Ordered By: Alexis Villatoro on 03-25-2023 Urobilinogen Ql (U) 1 mg/dl Normal [facility] Laboratory - Chemistry and C hemistry - challengeon 03-22-2023 Bilirubin Ql (U) Small (1+) [facility] Glucose Ql (U) Negative [facility] Ketones Ql (U) Negative [facility] pH (U) 6.5 [pH] [facility] Specific gravity (U) [Rel density] 1.005 [facility] Urobilinogen (U) [Mass/Vol] 1 mg/dL [facility] Laboratory - Hematology and Cell countson 03-22-2023 Hemoglobin Ql (U) Hemolyzed [facility] Laboratory - Specimen inform ationon 03-22-2023 Clarity (U) Clear [facility] Color (U) [place] [facility] Laboratory - Urinalysison Nitrite Ql (U) Positive [facility] No Panel Informationon 03-22 Urine Leukocytes Positive [facility] Urine Non-Hemolyzed Blood Large [facility] Culture, urineOrdered By: Forrest Villatoro on 12-28-2022 Bacteria identified Cx Nom (U) Mixed Gram Pos & Gram Neg Org [facility] Basophil percentageOrdered B y: Alexis Villatoro on 12-27-2022 Basophil percentage 0-5 SEEN /hpf 0-5 [facility] Bilirubin Test strip Ql (U)O rdered By: Alexis Villatoro on 12-27-2022 Bilirubin Ql (U) 1 mg/dL Negative [facility] Comment on above: COLOR OF URINE MAY A FFECT DIPSTICK RESULTS. Culture, urineOrdered By: Forrest Villatoro on 12-27-2022 Bacteria identified Cx Nom (U) Mixed Gram Pos & Gram Neg Org [facility] Ketones Test strip Ql (U)Ord ered By: Alexis Villatoro on 12-27-2022 Ketones Ql (U) Negative Negative [facility] Mucus LM Ql (Urine sed)Order ed By: Alexis Villatoro on 12-27-2022 Mucus Ql (Urine sed) 0 SEEN /hpf [facility] Nitrite Test strip Ql (U)Ord ered By: Alexis Villatoro on 12-27-2022 Nitrite Ql (U) Positive Negative [facility] Protein Test strip Ql (U)Ord ered By: Alexis Villatoro on 12-27-2022 Protein Ql (U) Negative Negative [facility] Squamous epithelial cells de tection in urine sediment by light microscopyOrdered By: Alexis Villatoro on 12-27-2022 Epithelial cells.squamous LM Ql (Urine sed) 0 SEEN /hpf 5-10 [facility] Urine blood detectionOrdered By: Alexis Villatoro on 12-27-2022 RBC Ql (U) 10 /ul Negative [facility] RBC Ql (U) 0 SEEN /hpf 0-5 [facility] Urine clarityOrdered By: Antoine Villatoro on 12-27-2022 Clarity (U) Clear Clear [facility] Urine color determinationOrd ered By: Alexis Villatoro on 12-27-2022 Color (U) Yellow Yellow [facility] Urine glucose detectionOrder ed By: Alexis Villatoro on 12-27-2022 Glucose Ql (U) Normal mg/dl Normal [facility] Urine leukocyte esterase det ection by dipstickOrdered By: Alexis Villatoro on 12-27-2022 Leukocyte esterase Test strip Ql (U) 500 /ul Negative [facility] Urine pHOrdered By: Alexis sorto on 12-27-2022 pH (U) 7.0 [pH] 5.0 - 8.0 [facility] Urine sediment bacteria coun t by microscopy (number/high power field)Ordered By: Alexis Villatoro on 12-27-2022 Bacteria LM.HPF (Urine sed) [#/Area] 0 /[HPF] None Seen [facility] Urine specific gravity measu rementOrdered By: Alexis Villatoro on 12-27-2022 Specific gravity (U) [Rel density] 1.010 1.002-1.030 [facility] Urobilinogen Auto test strip Ql (U)Ordered By: Alexis Villatoro on 12-27-2022 Urobilinogen Ql (U) 1 mg/dl Normal [facility] No Panel InformationOrdered By: Dr. Mathis on 12-18-2022 Estimated GFR (MDRD) Amer 101 mL/min >60 [facility] Comment on above: GFR Calc Estimated GFR (MDRD) Non-Af Amer 84 mL/min >60 [facility] Comment on above: Non- GFR Calc Serum or plasma calcium corrina urement (mass/volume)Ordered By: Dr. Mathis on 12-18-2022 Calcium [Mass/Vol] 8.8 mg/dL 8.5-10.1 [facility] Serum or plasma creatinine m easurement (mass/volume)Ordered By: Dr. Mathis on 12-18-2022 Creatinine [Mass/Vol] 0.72 mg/dL 0.55-1.02 [facility] Comment on above: The validity of the calculated GFR & GFRAA in patients over 70 years has not been determined. Clinical correlation is essential. Bilirubin Test strip Ql (U)O rdered By: Dr. Mathis on 10-26-2022 Bilirubin Ql (U) Negative Negative [facility] Ketones Test strip Ql (U)Ord ered By: Dr. Mathis on 10-26-2022 Ketones Ql (U) Negative Negative [facility] Nitrite Test strip Ql (U)Ord ered By: Dr. Mathis on 10-26-2022 Nitrite Ql (U) Negative Negative [facility] Protein Test strip Ql (U)Ord ered By: Dr. Mathis on 10-26-2022 Protein Ql (U) Negative Negative [facility] Urine blood detectionOrdered By: Dr. Mathis on 10-26-2022 RBC Ql (U) Negative Negative [facility] Urine clarityOrdered By: Dr. Mathis on 10-26-2022 Clarity (U) Clear Clear [facility] Urine color determinationOrd ered By: Dr. Mathis on 10-26-2022 Color (U) Yellow Yellow [facility] Urine glucose detectionOrder ed By: Dr. Mathis on 10-26-2022 Glucose Ql (U) Normal mg/dl Normal [facility] Urine leukocyte esterase det ection by dipstickOrdered By: Dr. Mathis on 10-26-2022 Leukocyte esterase Test strip Ql (U) Negative Negative [facility] Urine pHOrdered By: Dr. Huyen mendoza on 10-26-2022 pH (U) 6.5 [pH] 5.0 - 8.0 [facility] Urine specific gravity measu rementOrdered By: Dr. Mathis on 10-26-2022 Specific gravity (U) [Rel density] 1.010 1.002-1.030 [facility] Urobilinogen Auto test strip Ql (U)Ordered By: Dr. Mathis on 10-26-2022 Urobilinogen Ql (U) Normal mg/dl Normal [facility] Culture, urineOrdered By: Alex Lim on 09-09-2022 Bacteria identified Cx Nom (U) Culture exhibits no growth. [facility] Basophil percentageOrdered B y: Giovani Lim on 09-06-2022 Basophil percentage 0-5 SEEN /hpf 0-5 [facility] Bilirubin Test strip Ql (U)O rdered By: Giovani Lim on 09-06-2022 Bilirubin Ql (U) Negative Negative [facility] Ketones Test strip Ql (U)Ord ered By: Giovani Lim on 09-06-2022 Ketones Ql (U) Negative Negative [facility] Mucus LM Ql (Urine sed)Order ed By: Giovani Lim on 09-06-2022 Mucus Ql (Urine sed) 0 SEEN /hpf [facility] Nitrite Test strip Ql (U)Ord ered By: Giovani Lim on 09-06-2022 Nitrite Ql (U) Positive Negative [facility] Protein Test strip Ql (U)Ord ered By: Giovani Lim on 09-06-2022 Protein Ql (U) Negative Negative [facility] Squamous epithelial cells de tection in urine sediment by light microscopyOrdered By: Giovani Lim on 09-06-2022 Epithelial cells.squamous LM Ql (Urine sed) 0 SEEN /hpf 5-10 [facility] Urine blood detectionOrdered By: Giovani Lim on 09-06-2022 RBC Ql (U) Negative Negative [facility] RBC Ql (U) 0 SEEN /hpf 0-5 [facility] Urine clarityOrdered By: Christiane Lim on 09-06-2022 Clarity (U) Clear Clear [facility] Urine color determinationOrd ered By: Giovani Lim on 09-06-2022 Color (U) Yellow Yellow [facility] Urine glucose detectionOrder ed By: Giovani Lim on 09-06-2022 Glucose Ql (U) Normal mg/dl Normal [facility] Urine leukocyte esterase det ection by dipstickOrdered By: Giovani Lim on 09-06-2022 Leukocyte esterase Test strip Ql (U) 500 /ul Negative [facility] Urine pHOrdered By: Giovani rodriguez on 09-06-2022 pH (U) 8.0 [pH] 5.0 - 8.0 [facility] Urine sediment bacteria coun t by microscopy (number/high power field)Ordered By: Giovani Lim on 09-06-2022 Bacteria LM.HPF (Urine sed) [#/Area] RARE /hpf None Seen [facility] Urine specific gravity measu rementOrdered By: Giovani Lim on 09-06-2022 Specific gravity (U) [Rel density] 1.010 1.002-1.030 [facility] Urobilinogen Auto test strip Ql (U)Ordered By: Giovani Lim on 09-06-2022 Urobilinogen Ql (U) Normal mg/dl Normal [facility] Basophil percentageOrdered B y: Dr. Mathis on 06-19-2022 Bilirubin [Mass/Vol] 0.50 mg/dL 0.20-1.00 [facility] Comment on above: For patients on eltr ombopag therapy, use of [place] TBIL is not recommended. Chloride [Moles/Vol] 107 mmol/L 98-107 [facility] Glucose [Mass/Vol] 80 mg/dL 74-106 [facility] Potassium [Moles/Vol] 5.2 mmol/L 3.5-5.1 [facility] Protein [Mass/Vol] 7.4 g/dL 6.4-8.2 [facility] Sodium [Moles/Vol] 142 mmol/L 136-145 [facility] Laboratory - Chemistry and C hemistry - challengeOrdered By: Dr. Mathis on 06-19-2022 ALP [Catalytic activity/Vol] 53 U/L 45-117 [facility] ALT [Catalytic activity/Vol] 21 U/L 13-56 [facility] CO2 [Moles/Vol] 32.0 mmol/L 21.0-32.0 [facility] Globulin (S) [Mass/Vol] 3.5 g/dL 2.2-4.2 [facility] Urea nitrogen/Creatinine [Mass ratio] 29.3 mg/mg 10-20 [facility] No Panel InformationOrdered By: Dr. Mathis on 06-19-2022 Estimated GFR (MDRD) Amer 115 mL/min >60 [facility] Comment on above: GFR Calc Estimated GFR (MDRD) Non-Af Amer 95 mL/min >60 [facility] Comment on above: Non- GFR Calc Vitamin D 25-Hydroxy 42.1 ng/mL [facility] Comment on above: Vitamin D 25(OH) Sta tus Range Deficiency <20 ng/mL (50nmol/L) Insufficiency 20 - 30 ng/mL (50 - 75 nmol/L) Sufficiency 30 - 100 ng/mL (75 - 250 nmol/L) Toxicity >100 ng/mL (>250 nmol/L) Serum or plasma albumin corrina urement (mass/volume)Ordered By: Dr. Mathis on 06-19-2022 Albumin [Mass/Vol] 3.9 g/dL 3.2-5.0 [facility] Serum or plasma albumin/glob ulin mass ratioOrdered By: Dr. Mathis on 06-19-2022 Albumin/Globulin [Mass ratio] 1.1 {ratio} 0.9-2.4 [facility] Serum or plasma calcium corrina urement (mass/volume)Ordered By: Dr. Mathis on 06-19-2022 Calcium [Mass/Vol] 9.4 mg/dL 8.5-10.1 [facility] Serum or plasma creatinine m easurement (mass/volume)Ordered By: Dr. Mathis on 06-19-2022 Creatinine [Mass/Vol] 0.65 mg/dL 0.55-1.02 [facility] Comment on above: The validity of the calculated GFR & GFRAA in patients over 70 years has not been determined. Clinical correlation is essential. Serum or plasma urea nitroge n measurement (mass/volume)Ordered By: Dr. Mathis on 06-19-2022 Urea nitrogen [Mass/Vol] 19 mg/dL 7-18 [facility] Thin prep Papanicolaou smear with manual screeningOrdered By: Dr. Mathis on 06-19-2022 Thin prep Papanicolaou smear with manual screening 16 U/L 15- [facility] Thin prep Papanicolaou smear with manual screening 3 - [facility] Serum or plasma calcium corrina urement (mass/volume)on 11-14-2021 Calcium [Mass/Vol] 8.6 mg/dL 8.5-10.1 [facility] Work Phone: Basophil percentageon 2021 Basophil percentage 0 SEEN /hpf [facility] Work Phone: Bilirubin Test strip Ql (U)o n 11-10-2021 Bilirubin Ql (U) Negative Negative [facility] Work Phone: Ketones Test strip Ql (U)on 11-10-2021 Ketones Ql (U) Negative Negative [facility] Work Phone: Mucus LM Ql (Urine sed)on Mucus Ql (Urine sed) 0 SEEN /hpf [facility] Work Phone: Nitrite Test strip Ql (U)on 11-10-2021 Nitrite Ql (U) Negative Negative [facility] Work Phone: Protein Test strip Ql (U)on 11-10-2021 Protein Ql (U) Negative Negative [facility] Work Phone: Squamous epithelial cells de tection in urine sediment by light microscopyon 11-10-2021 Epithelial cells.squamous LM Ql (Urine sed) 0 SEEN /hpf [facility] Work Phone: Urine blood detectionon 10-27 RBC Ql (U) Negative Negative [facility] Work Phone: RBC Ql (U) 0 SEEN /hpf [facility] Work Phone: Urine clarityon 11-10-2021 Clarity (U) Sl. Cloudy Clear [facility] Work Phone: Urine color determinationon 11-10-2021 Color (U) Yellow Yellow [facility] Work Phone: Urine glucose detectionon Glucose Ql (U) Normal mg/dl Normal [facility] Work Phone: Urine leukocyte esterase det ection by dipstickon 11-10-2021 Leukocyte esterase Test strip Ql (U) Negative Negative [facility] Work Phone: Urine pHon 11-10-2021 pH (U) 7.0 [pH] [facility] Work Phone: Urine sediment bacteria coun t by microscopy (number/high power field)on 11-10-2021 Bacteria LM.HPF (Urine sed) [#/Area] 0 /[HPF] None Seen [facility] Work Phone: Urine specific gravity measu rementon 11-10-2021 Specific gravity (U) [Rel density] 1.010 [facility] Work Phone: Urobilinogen Auto test strip Ql (U)on 11-10-2021 Urobilinogen Ql (U) Normal mg/dl Normal [facility] Work Phone: Amorphous sediment detection in urine sediment by light microscopyon 10-19-2021 Amorphous sediment LM Ql (Urine sed) 1+ PHOS [facility] Work Phone: Basophil percentageon 2021 Basophil percentage 25-50 SEEN /hpf [facility] Work Phone: Bilirubin Test strip Ql (U)o n 10-19-2021 Bilirubin Ql (U) Negative Negative [facility] Work Phone: Culture, urineon 10-19-2021 Bacteria identified Cx Nom (U) Culture exhibits no growth. [facility] Work Phone: Ketones Test strip Ql (U)on 10-19-2021 Ketones Ql (U) Negative Negative [facility] Work Phone: Mucus LM Ql (Urine sed)on Mucus Ql (Urine sed) 0 SEEN /hpf [facility] Work Phone: Nitrite Test strip Ql (U)on 10-19-2021 Nitrite Ql (U) Positive Negative [facility] Work Phone: Protein Test strip Ql (U)on 10-19-2021 Protein Ql (U) Negative Negative [facility] Work Phone: Squamous epithelial cells de tection in urine sediment by light microscopyon 10-19-2021 Epithelial cells.squamous LM Ql (Urine sed) 0-5 SEEN /hpf [facility] Work Phone: Urine blood detectionon 09-27 RBC Ql (U) 150 /ul Negative [facility] Work Phone: RBC Ql (U) 10-25 SEEN /hpf [facility] Work Phone: Urine clarityon 10-19-2021 Clarity (U) Sl. Cloudy Clear [facility] Work Phone: Urine color determinationon 10-19-2021 Color (U) Yellow Yellow [facility] Work Phone: Urine glucose detectionon Glucose Ql (U) Normal mg/dl Normal [facility] Work Phone: Urine leukocyte esterase det ection by dipstickon 10-19-2021 Leukocyte esterase Test strip Ql (U) 500 /ul Negative [facility] [facility] Work Phone: Urine pHon 10-19-2021 pH (U) 7.0 [pH] [facility] Work Phone: Urine sediment bacteria coun t by microscopy (number/high power field)on 10-19-2021 Bacteria LM.HPF (Urine sed) [#/Area] RARE /hpf None Seen [facility] Work Phone: Urine specific gravity measu rementon 10-19-2021 Specific gravity (U) [Rel density] 1.010 [facility] Work Phone: Urobilinogen Auto test strip Ql (U)on 10-19-2021 Urobilinogen Ql (U) 1 mg/dl Normal [facility] Work Phone: Basophil percentageon 2021 Basophil percentage 10-25 SEEN /hpf [facility] Work Phone: Bilirubin Test strip Ql (U)o n 08-25-2021 Bilirubin Ql (U) Negative Negative [facility] Work Phone: Culture, urineon 08-25-2021 Bacteria identified Cx Nom (U) Staphylococcus saprophyticus [facility] Work Phone: Ketones Test strip Ql (U)on 08-25-2021 Ketones Ql (U) Negative Negative [facility] Work Phone: Laboratory - Chemistry and C hemistry - challengeon 08-25-2021 Bilirubin Ql (U) Negative [facility] Work Phone: Glucose Ql (U) Negative [facility] Work Phone: Ketones Ql (U) Negative [facility] Work Phone: pH (U) 5.0 [pH] [facility] Work Phone: Specific gravity (U) [Rel density] 1.010 [facility] Work Phone: Urobilinogen (U) [Mass/Vol] Negative [facility] Work Phone: Laboratory - Hematology and Cell countson 08-25-2021 Hemoglobin Ql (U) Large [facility] Work Phone: Laboratory - Specimen inform ationon 08-25-2021 Clarity (U) Clear [facility] Work Phone: Color (U) DARK YELLOW [facility] Work Phone: Laboratory - Urinalysison Nitrite Ql (U) Negative [facility] Work Phone: Protein Ql (U) Negative [facility] Work Phone: Mucus LM Ql (Urine sed)on Mucus Ql (Urine sed) 0 SEEN /hpf [facility] Work Phone: Nitrite Test strip Ql (U)on 08-25-2021 Nitrite Ql (U) Positive Negative [facility] Work Phone: No Panel Informationon 08-25 Urine Leukocytes Positive [facility] Work Phone: Urine Non-Hemolyzed Blood Large [facility] Work Phone: Protein Test strip Ql (U)on 08-25-2021 Protein Ql (U) 15 mg/dl Negative [facility] Work Phone: Squamous epithelial cells de tection in urine sediment by light microscopyon 08-25-2021 Epithelial cells.squamous LM Ql (Urine sed) 0-5 SEEN /hpf [facility] Work Phone: Urine blood detectionon 07-30 RBC Ql (U) 250 /ul Negative [facility] Work Phone: RBC Ql (U) 25-50 SEEN /hpf [facility] Work Phone: Urine clarityon 08-25-2021 Clarity (U) Sl. Cloudy Clear [facility] Work Phone: Urine color determinationon 08-25-2021 Color (U) Yellow Yellow [facility] Work Phone: Urine glucose detectionon Glucose Ql (U) Normal mg/dl Normal [facility] Work Phone: Urine leukocyte esterase det ection by dipstickon 08-25-2021 Leukocyte esterase Test strip Ql (U) 100 /ul Negative [facility] Work Phone: Urine pHon 08-25-2021 pH (U) 7.0 [pH] [facility] Work Phone: Urine sediment bacteria coun t by microscopy (number/high power field)on 08-25-2021 Bacteria LM.HPF (Urine sed) [#/Area] 0 /[HPF] None Seen [facility] Work Phone: Urine specific gravity measu rementon 08-25-2021 Specific gravity (U) [Rel density] 1.010 [facility] Work Phone: Urobilinogen Auto test strip Ql (U)on 08-25-2021 Urobilinogen Ql (U) Normal mg/dl Normal [facility] Work Phone: Vital Signs Date Time Vital Sign Value Performing Clinician Facility 03-30-2025 12:58-0400 Body temperature 98.4 [degF] Dr. Christiano Mathis DO Work Phone: [facility] 03-30-2025 12:58-0400 Diastolic blood pressure 62 mm[Hg] Dr. Christiano Mathis DO Work Phone: [facility] 03-30-2025 12:58-0400 Heart rate 74 /min Dr. Christiano Mathis DO Work Phone: [facility] 03-30-2025 12:58-0400 Respiratory rate 16 /min Dr. Christiano Mathis DO Work Phone: [facility] 03-30-2025 12:58-0400 SaO2% (BldA) [Mass fraction] 97 % Dr. Christiano Mathis DO Work Phone: [facility] 03-30-2025 12:58-0400 Systolic blood pressure 102 mm[Hg] Dr. Christiano Mathis DO Work Phone: [facility] 07-22-2023 03:33-0500 Body height [address] SHERICE LEYVA DO [place] 07-22-2023 03:33-0500 Body temperature 98.42 [degF] DR SHERICE LEYVA DO [place] 07-22-2023 03:33-0500 Body weight [address] SHERICE LEYVA DO [place] 07-22-2023 03:33-0500 Diastolic Blood Pressure Non-Invasive 73 mm[Hg] DR SHERICE LEYVA DO [place] 07-22-2023 03:33-0500 Respiratory rate 20 /min DR SHERICE LEYVA DO [place] 07-22-2023 03:33-0500 Systolic Blood Pressure Non-Invasive 132 mm[Hg] DR SHERICE LEYVA DO [place] 07-02-2023 08:26-0500 Body height 157.[address] Christiano Mathis Work Phone: [facility] 07-02-2023 08:26-0500 Body mass index (BMI) [Ratio] 20.3 kg/m2 Dr. Christiano Mathis Work Phone: [facility] 07-02-2023 08:26-0500 Body temperature 97.7 [degF] Dr. Christiano Mathis Work Phone: [facility] 07-02-2023 08:26-0500 Body weight 50.[address] Christiano Mathis Work Phone: [facility] 07-02-2023 08:26-0500 Diastolic blood pressure 60 mm[Hg] Dr. Christiano Mathis Work Phone: [facility] 07-02-2023 08:26-0500 Heart rate 82 /min Dr. Christiano Mathis Work Phone: [facility] 07-02-2023 08:26-0500 Respiratory rate 16 /min Dr. Christiano Mathis Work Phone: [facility] 07-02-2023 08:26-0500 SaO2% (BldA) [Mass fraction] 99 % Dr. Christiano Mathis Work Phone: [facility] 07-02-2023 08:26-0500 Systolic blood pressure 110 mm[Hg] Dr. Christiano Mathis Work Phone: [facility] 05-21-2023 12:07-0400 Body temperature 100.5 [degF] Dr. Christiano Mathis Work Phone: [facility] 05-21-2023 12:07-0400 Diastolic blood pressure 62 mm[Hg] Dr. Christiano Mathis Work Phone: [facility] 05-21-2023 12:07-0400 Heart rate 89 /min Dr. Christiano Mathis Work Phone: [facility] 05-21-2023 12:07-0400 Respiratory rate 17 /min Dr. Christiano Mathis Work Phone: [facility] 05-21-2023 12:07-0400 SaO2% (BldA) [Mass fraction] 96 % Dr. Christiano Mathis Work Phone: [facility] 05-21-2023 12:07-0400 Systolic blood pressure 97 mm[Hg] Dr. Christiano Mathis Work Phone: [facility] 03-22-2023 17:10-0400 Body temperature 98.1 [degF] Dr. Christiano Mathis Work Phone: [facility] 03-22-2023 17:10-0400 Diastolic blood pressure 62 mm[Hg] Dr. Christiano Mathis Work Phone: [facility] 03-22-2023 17:10-0400 Heart rate 64 /min Dr. Christiano Mathis Work Phone: [facility] 03-22-2023 17:10-0400 Respiratory rate 14 /min Dr. Christiano Mathis Work Phone: [facility] 03-22-2023 17:10-0400 SaO2% (BldA) [Mass fraction] 98 % Dr. Christiano Mathis Work Phone: [facility] 03-22-2023 17:10-0400 Systolic blood pressure 104 mm[Hg] Dr. Christiano Mathis Work Phone: [facility] 12-27-2022 11:00-0400 Body height 157.[address] Christiano Mathis Work Phone: [facility] 12-27-2022 11:00-0400 Body mass index (BMI) [Ratio] 19.7 kg/m2 Dr. Christiano Mathis Work Phone: [facility] 12-27-2022 11:00-0400 Body temperature 98 [degF] Dr. Christiano Mathis Work Phone: [facility] 12-27-2022 11:00-0400 Body weight 48.[address] Christiano Mathis Work Phone: [facility] 12-27-2022 11:00-0400 Diastolic blood pressure 60 mm[Hg] Dr. Christiano Mathis Work Phone: [facility] 12-27-2022 11:00-0400 Heart rate 74 /min Dr. Christiano Mathis Work Phone: [facility] 12-27-2022 11:00-0400 Respiratory rate 16 /min Dr. Christiano Mathis Work Phone: [facility] 12-27-2022 11:00-0400 SaO2% (BldA) [Mass fraction] 98 % Dr. Christiano Mathis Work Phone: [facility] 12-27-2022 11:00-0400 Systolic blood pressure 90 mm[Hg] Dr. Christiano Mathis Work Phone: [facility] 09-06-2022 15:13-0500 Body height 158.[address] Christiano Mathis Work Phone: [facility] 09-06-2022 15:13-0500 Body mass index (BMI) [Ratio] 19.7 kg/m2 Dr. Christiano Mathis Work Phone: [facility] 09-06-2022 15:13-0500 Body temperature 96.2 [degF] Dr. Christiano Mathis Work Phone: [facility] 09-06-2022 15:13-0500 Body weight 49.[address] Christiano Mathis Work Phone: [facility] 09-06-2022 15:13-0500 Diastolic blood pressure 62 mm[Hg] Dr. Christiano Mathis Work Phone: [facility] 09-06-2022 15:13-0500 Heart rate 80 /min Dr. Christiano Mathis Work Phone: [facility] 09-06-2022 15:13-0500 Respiratory rate 16 /min Dr. Christiano Matihs Work Phone: [facility] 09-06-2022 15:13-0500 SaO2% (BldA) [Mass fraction] 97 % Dr. Christiano Mathis Work Phone: [facility] 09-06-2022 15:13-0500 Systolic blood pressure 104 mm[Hg] Dr. Christiano Mathis Work Phone: [facility] 08-01-2022 15:37-0500 Body mass index (BMI) [Ratio] 20 kg/m2 Dr. Christiano Mathis Work Phone: [facility] 08-01-2022 15:37-0500 Body temperature 97.8 [degF] Dr. Christiano Mathis Work Phone: [facility] 08-01-2022 15:37-0500 Body weight 50.[address] Christiano Mathis Work Phone: [facility] 08-01-2022 15:37-0500 Diastolic blood pressure 64 mm[Hg] Dr. Christiano Mathis Work Phone: [facility] 08-01-2022 15:37-0500 Heart rate 75 /min Dr. Christiano Mathis Work Phone: [facility] 08-01-2022 15:37-0500 Respiratory rate 16 /min Dr. Christiano Mathis Work Phone: [facility] 08-01-2022 15:37-0500 SaO2% (BldA) [Mass fraction] 98 % Dr. Christiano Mathis Work Phone: [facility] 08-01-2022 15:37-0500 Systolic blood pressure 102 mm[Hg] Dr. Christiano Mathis Work Phone: [facility] 07-10-2022 09:41-0500 Body temperature 97.1 [degF] Dr. Christiano Mathis Work Phone: [facility] 07-10-2022 09:41-0500 Body weight 50.[address] Christiano Mathis Work Phone: [facility] 07-10-2022 09:41-0500 Diastolic blood pressure 56 mm[Hg] Dr. Christiano Mathis Work Phone: [facility] 07-10-2022 09:41-0500 Heart rate 73 /min Dr. Christiano Mathis Work Phone: [facility] 07-10-2022 09:41-0500 Respiratory rate 18 /min Dr. Christiano Mathis Work Phone: [facility] 07-10-2022 09:41-0500 SaO2% (BldA) [Mass fraction] 97 % Dr. Christiano Mathis Work Phone: [facility] 07-10-2022 09:41-0500 Systolic blood pressure 104 mm[Hg] Dr. Christiano Mathis Work Phone: [facility] 06-19-2022 09:02-0500 Body temperature 96.3 [degF] Dr. Christiano Mathis Work Phone: [facility] 06-19-2022 09:02-0500 Body weight 49.[address] Christiano Mathis Work Phone: [facility] 06-19-2022 09:02-0500 Diastolic blood pressure 60 mm[Hg] Dr. Christiano Mathis Work Phone: [facility] 06-19-2022 09:02-0500 Heart rate 84 /min Dr. Christiano Mathis Work Phone: [facility] 06-19-2022 09:02-0500 Respiratory rate 16 /min Dr. Christiano Mathis Work Phone: [facility] 06-19-2022 09:02-0500 SaO2% (BldA) [Mass fraction] 99 % Dr. Christiano Mathis Work Phone: [facility] 06-19-2022 09:02-0500 Systolic blood pressure 108 mm[Hg] Dr. Christiano Mathis Work Phone: [facility] 10-19-2021 14:38-0400 Body temperature 97.6 [degF] Dr. Christiano Mathis Work Phone: [facility] Work Phone: 10-19-2021 14:38-0400 Body weight 48.[address] Christiano Mathis Work Phone: [facility] Work Phone: 10-19-2021 14:38-0400 Diastolic blood pressure 60 mm[Hg] Dr. Christiano Mathis Work Phone: [facility] Work Phone: 10-19-2021 14:38-0400 Heart rate 74 /min Dr. Christiano Mathis Work Phone: [facility] Work Phone: 10-19-2021 14:38-0400 Respiratory rate 16 /min Dr. Christiano Mathis Work Phone: [facility] Work Phone: 10-19-2021 14:38-0400 SaO2% (BldA) [Mass fraction] 98 % Dr. Christiano Mathis Work Phone: [facility] Work Phone: 10-19-2021 14:38-0400 Systolic blood pressure 110 mm[Hg] Dr. Christiano Mathis Work Phone: [facility] Work Phone: 08-25-2021 08:41-0500 Body temperature 98.8 [degF] Dr. Christiano Mathis Work Phone: [facility] Work Phone: 08-25-2021 08:41-0500 Diastolic blood pressure 68 mm[Hg] Dr. Christiano Mathis Work Phone: [facility] Work Phone: 08-25-2021 08:41-0500 Heart rate 77 /min Dr. Christiano Mathis Work Phone: [facility] Work Phone: 08-25-2021 08:41-0500 Respiratory rate 14 /min Dr. Christiano Mathis Work Phone: [facility] Work Phone: 08-25-2021 08:41-0500 SaO2% (BldA) [Mass fraction] 97 % Dr. Christiano Mathis Work Phone: [facility] Work Phone: 08-25-2021 08:41-0500 Systolic blood pressure 102 mm[Hg] Dr. Christiano Mathis Work Phone: [facility] Work Phone: Encounters Encounter Date Encounter Type Care Provider Facility Start: 03-30-2025 End: 03-30-[address] Christiano Mathis DO Work Phone: [facility] Start: 03-30-2025 End: 03-30-2025 Patient encounter procedure Darrell Moehollis [employer] Work Phone: Start: 01-28-2025 End: 01-28-2025 Patient encounter procedure BIM NURSE [facility] Work Phone: Start: 01-28-2025 End: 01-28-[address] Christiano Mathis DO Work Phone: -[facility] Start: 01-26-2025 Non-patient / Non-visit Dr. Celeste marin MD -[facility] Work Phone: Start: 09-21-2024 End: 09-21-2024 ambulatory Christiano Mathis Facility:[facility] Start: 09-18-2024 End: 09-18-2024 ambulatory Christiano Mathis Facility:[facility] Start: 08-06-2024 Encounter for genera l adult medical examination without abnormal findings Christiano Mathis [facility] Start: 07-31-2024 End: 07-31-2024 ambulatory Christiano Mathis Facility:[facility] Start: 07-07-2024 End: 07-07-2024 ambulatory Christiano Mathis Facility:[facility] Start: 07-07-2024 End: 07-07-2024 ambulatory Christiano Mathis Facility:[facility] Start: 04-14-2024 End: 04-14-2024 ambulatory CHRISTIANO MATHIS DO Facility:[facility] Start: 04-14-2024 End: 04-14-2024 Patient encounter procedure CHRISTIANO MATHIS DO [facility] Start: 03-23-2024 ambulatory CHRISTIANO MATHIS DO Faci lity:[facility] Start: 07-22-2023 End: 07-22-2023 Emergency department patient visit DR SHERICE LEYVA DO [facility] Start: 07-03-2023 End: 07-03-[address] Christiano Mathis Work Phone: [facility] Work Phone: Start: 07-03-2023 End: 07-03-[address] Christiano Mathis Work Phone: [facility] [place] Start: 07-02-2023 End: 07-02-2023 Encounter for general adult medical examination without abnormal findings Dr. Christiano Mathis Work Phone: [facility] Start: 07-02-2023 End: 07-02-[address] Christiano Mathis Work Phone: [facility] Work Phone: Start: 05-21-2023 End: 05-21-[address] Christiano Mathis Work Phone: [facility] Work Phone: Start: 04-22-2023 End: 04-22-2023 ambulatory CHRISTIANO R BROWN DO Facility:[facility] Start: 04-22-2023 End: 04-22-2023 Patient encounter procedure CHRISTIANO MATHIS DO [facility] Start: 03-25-2023 End: 03-25-[address] Christiano Mathis Work Phone: [facility] Work Phone: Start: 03-25-2023 End: 03-25-[address] [facility] Work [facility] Start: 03-22-2023 End: 03-22-[address] Christiano Mathis Work Phone: [facility] Work Phone: Start: 01-10-2023 End: 01-10-[address] Christiano Mathis Work Phone: [facility] Work Phone: Start: 12-27-2022 End: 12-27-[address] Christiano Mathis Work Phone: [facility] Work Phone: Start: 12-27-2022 End: 12-27-[address] [facility] Start: 12-27-2022 End: 12-27-[address] [facility] Start: 12-18-2022 End: 12-18-[address] Christiano Mathis Work Phone: [facility] Work Phone: Start: 12-18-2022 End: 12-18-[address] [facility] Start: 10-26-2022 End: 10-26-[address] Christiano Mathis Work Phone: [facility] Work Phone: Start: 10-26-2022 End: 10-26-[address] Christiano Mathis Work Phone: [facility] Start: 09-06-2022 End: 09-06-[address] Christiano Mathis Work Phone: [facility] Work Phone: Start: 09-06-2022 End: 09-06-[address] Christiano Mathis Work Phone: [facility] Start: 08-01-2022 End: 08-01-[address] Christiano Mathis Work Phone: [facility] Start: 07-10-2022 End: 07-10-[address] Christiano Mathis Work Phone: [facility] Start: 06-19-2022 End: 06-19-[address] Chrsitiano Mathis Work Phone: [facility] Work Phone: Start: 06-19-2022 End: 06-19-2022 Encounter for general adult medical examination without abnormal findings Dr. Christiano Mathis Work Phone: [facility] Start: 06-19-2022 End: 06-19-[address] Christiano Mathis Work Phone: [facility] Start: 05-21-2022 End: 05-21-[address] Christiano Mathis Work Phone: [facility] Start: 03-16-2022 End: 03-16-[address] Christiano Mathis Work Phone: [facility] Start: 11-14-2021 End: 11-14-[address] Christiano Mathis Work Phone: [facility] Start: 11-10-2021 End: 11-10-[address] Christiano Mathis Work Phone: [facility] Start: 10-19-2021 End: 10-19-[address] [facility] Start: 10-19-2021 End: 10-19-[address] Christiano Mathis Work Phone: [facility] Start: 08-25-2021 End: 08-25-[address] Christiano Mathis Work Phone: [facility] Start: 06-20-[address] Christiano Mathis Work Phone: [facility] Start: 06-07-[address] Wilber Mathis Work Phone: [facility] Comment on above: No flags seen on men nataliia status, depression, falls, eye and dental up to date. Procedures Date Procedure Procedure Detail Performing Clinician Start: 03-25-[address] Vashti Mathis Work Phone: Start: 12-27-[address] Vashti Mathis Work Phone: Start: 10-19-[address] Vashti Mathis Work Phone: Start: 08-25-[address] Vashti Mathis Work Phone: Start: 07-29-1988 Excision of cyst of ovary CHRISTIANO MATHIS DO section CHRISTIANO HUTCHINSON DO Comment on above: x3 Oophorectomy CHRISTIANO Merino O Urine culture Dr. Christiano Salvador own Work Phone: Urine culture Dr. Christiano dawson Work Phone: Plan of Treatment Date Care Activity Detail Author MG Breast - bilateral Screening [facility] Immunizations Immunization Date Immunization Notes Care Provider Martir anderson 05-21-2022 influenza, injectabl e, quadrivalent, preservative free Dr. Christiano Mathis Work Phone: [facility] 05-21-2022 influenza, seasonal, injectable Dr. Christiano Mathis Work Phone: [facility] 03-16-2022 tetanus toxoid, redu kishan diphtheria toxoid, and acellular pertussis vaccine, adsorbed Dr. Christiano Mathis Work Phone: [facility] 05-04-2020 influenza, injectabl e, quadrivalent, preservative free; Translations: [Fluarix PF Quadrivalent ] CHRISTIANO MATHIS DO [facility] 06-01-2019 pneumococcal conjuga te vaccine, 13 valent; Translations: [Prevnar 13] CHRISTIANO MATHIS DO [facility] Comment on above: Early/Late Reason: O ther: 06-01-2019 influenza, injectabl e, quadrivalent, preservative free; Translations: [Fluarix PF Quadrivalent ] CHRISTIANO MATHIS DO [facility] 10-22-2018 typhoid vaccine, caridad e, oral CHRISTIANO MATHIS DO [facility] 10-22-2018 zoster vaccine recombinant CHRISTIANO MATHIS DO [facility] 06-04-2018 influenza virus vacc ine, unspecified formulation CHRISTIANO MATHIS DO [facility] 05-23-2018 zoster vaccine recombinant CHRISTIANO MATHIS DO [facility] 05-31-2017 influenza virus vacc ine, unspecified formulation CHRISTIANO BROWN DO [facility] 11-21-2016 pneumococcal polysaccharide vaccine, 23 valent CHRISTIANO BROWN DO [facility] 05-23-2016 influenza virus vacc ine, unspecified formulation CHRISTIANO BROWN DO [facility] 05-27-2015 influenza virus vacc ine, unspecified formulation CHRISTIANO BROWN DO [facility] 05-13-2013 influenza virus vacc ine, unspecified formulation CHRISTIANO BROWN DO [facility] 06-05-2012 influenza virus vacc ine, unspecified formulation CHRISTIANO BROWN DO [facility] 02-29-2012 tetanus toxoid, redu kishan diphtheria toxoid, and acellular pertussis vaccine, adsorbed CHRISTIANO BROWN DO [facility] 02-29-2012 zoster vaccine, live CHRISTIANO BROWN DO [facility] 07-29-2011 tetanus toxoid, redu kishan diphtheria toxoid, and acellular pertussis vaccine, adsorbed CHRISTIANO BROWN DO [facility] 07-29-2011 zoster vaccine, live CHRISTIANO BROWN DO [facility] 11-20-2006 adenovirus, type 4 a nd type 7, live, oral CHRISTIANO BROWN DO [facility] Payers Date Payer Category Payer Self-pay [id number] 2023 Medicare [id number] 2023 Unknown [id number] 1950 Unknown [id number] 2.16.8 [id number] 1950 Unknown [id number] 2.16.8 [id number] 1950 Unknown [id number] 2.16.8 [id number] 1950 Unknown [id number] 2.16.8 [id number] Unknown [id number] 2.16.8 [id number] Unknown [id number] 2.16.8 [id number] Unknown [id number] 2.16.8 [id number] Unknown [id number] 2.16.8 [id number] Unknown [id number] 2.16.8 [id number] Unknown [id number] 2.16.8 [id number] Social History Date Type Detail Facility Start: 10-19-2021 End: 07-02-2023 Tobacco smoking status PRIS Unknown if ever smoked [facility] Start: 1950 Sex Assigned At Female [facility] Start: 06-01-2019 End: 09-21-2024 Tobacco smoking status Never smoked tobacco (finding) [facility] Mental Status Date Assessment Result Facility 07-22-2023 Mental Status Orientation Oriented x 4 [facility] Clinical Notes 04-22-2023 to 01-28-2025 Note Date & Type Note Facility 01-28-2025 Evaluation note Diagnosis Onset Date Resolution Osteoporosis acute January 28 1:23pm Dysuria acute March 30, 2025 12:56pm [facility] Work Phone: [phone]) 278-635912-25-2023 Hospital Discharge instructions Patient Education 07/22/2023 04:19:35 Rib Fracture Rib Fracture You broke one or more ribs. This is called a rib fracture. Rib fractures don't need a cast like other bones. They will heal by themselves in about 4 to 6 weeks. The first 3 to 4 weeks will be the most painful. During this time deep breathing, coughing, or changing position from sitting to lying down, may cause the broken ends to move slightly. Home care Rest. You should not be doing any heavy lifting or strenuous exertion until the pain goes away. It hurts to breathe when you have a broken rib. This puts you at risk of getting pneumonia from poor airflow through your lungs. To prevent this: oTake several very deep breaths once an hour while you're awake. Breathe out through pursed lips amy you are blowing up a balloon. If possible, actually blow up a balloon or a rubber glove. This exercise builds up pressure inside the lung and prevents collapse of the small air sacs of the lung. This exercise may cause some pain at the site of injury. This is normal. oYou may have gotten a breathing exercise device called an incentive spirometer. Use it at least 4 times a day, or as directed. Apply an ice pack over the injured area for 15 to 20 minutes every 1 to 2 hours. You should do thisfor the first 24 to 48 hours. To make an ice pack, put ice cubes in a plastic bag that seals at thetop. Wrap the bag in a clean, thin towel or cloth. Never put ice or an ice pack directly on the skin. Keep using ice packs as needed for the relief of pain and swelling. You may use aqew-yhi-yuzzwqh pain medicine to control pain, unless another pain medicine was prescribed. If you have chronic liver or kidney disease or ever had a stomach ulcer or GI (gastrointestinal) bleeding, talk with your healthcare provider before using these medicines. If your pain is not controlled, contact your healthcare provider. Sometimes a stronger pain medicine may be needed. A nerve block can be done in case of severe pain. It will numb the nerve between the ribs. Follow-up care Follow up with your healthcare provider, or as advised. In rare cases, a broken rib will cause complications in the first few days that may not be clearly seen during your initial exam. This can include collapsed lung, bleeding around the lung or into the belly (abdomen), or pneumonia. So watch forthe signs below. If X-rays were taken, you will be told of any new findings that may affect your care. Call 911 Call 911 if you have: Dizziness, weakness or fainting Shortness of breath with or without chest discomfort New or worsening abdominal pain Discomfort in other areas of your upper body such as your shoulders, jaw, neck, or arms When to seek medical advice Call your healthcare provider right away if any of these occur: Increasing chest pain with breathing Fever of 100.4 F (38 C) or above, or as directed by your healthcare provider Congested cough, nausea, or vomiting [id number] [employer]. [address] [place] [address]. All rights reserved. This information is not intended as a substitute for professional medical care. Always follow yourhealthcare professional's instructions. Follow Up Care 07/22/2023 03:25:52 With:CHRISTIANO MATHIS DO Address: [facility] [address] [place] [phone] When:2-4 days Comments:Take 400-600 mg Motrin 3 times daily with food as needed for painTake 3000 mg of Tylenol daily, including the Tylenol that is included in the [facility] 12-25-2023 Note Discharge Instructions Thank you for allowing [facility] to assist you with your healthcare needs. The following is importantdischarge information regarding your hospital visit. Diagnosis from Today's Visit Rib fracture Rib/trunk pain-swelling What to Do Next Instructions from Your Care Team No qualifying data available. Post Acute Orders No qualifying data available. You Need to Schedule the Following Appointments Follow Up with CHRISTIANO MATHIS DO When Within 2-4 days Why: Take 400-600 mg Motrin 3 times daily with food as needed for pain Take 3000 mg of Tylenol daily, including the Tylenol that is included in the [facility] Where: [facility] [address] [place] [address] [place] [address]- [phone] Allergies NKA Medications Please ask your primary doctor or pharmacist before taking any other medication not listed, including over the counter drugs, herbal medications, vitamins and or supplements as they may interact withyour home medications. What How Much When Why Instructions Last Dose New acetaminophen-hydrocodone ([place] 325- 5 mg oral tablet) 1 tab(s) by mouth Two (2) times a day Rib fracture Duration: 3 Days Printed Prescription New lidocaine topical (Lidoderm 5% topical patch) 1 patch(es) Topical Every day Duration: 7 Days Printed Prescription Unchanged aspirin (aspirin 81 mg oral delayed release tablet) 1 tab(s) by mouth Every day Unchanged calcium-vitamin D (calcium-vitamin D 600 mg-400 intl units oral tablet, chewable) 1 tab(s) Chewed Every day Unchanged denosumab (Prolia 60 mg/ mL subcutaneous solution) 60 Milligram Subcutaneous Every 6 months Duration: 6 month(s) Unchanged multivitamin (Multivitamin) 1 tab(s) by mouth Every day Please take this list to your next doctor s visit. Bring all medications you take, including over the counter medications, herbals and other supplements with you to your doctor s visit. Patients and families are reminded to discard old lists and to update any records with all medication providers or retail pharmacies. Medication Leaflets lidocaine topical (LYE noe womack TOP i hussain) AneCream, Bactine, Glydo, Lidoderm, LidoRx, Medi-Quik [place], RadiaGuard, RectiCare, Regenecare MOBLEY [place], Solarcaine Cool Aloe What is the most important information I should know about lidocaine topical? An overdose of numbing medicine can cause fatal side effects if too much of the medicine is absorbed through your skin. Do not use large amounts of lidocaine topical, or cover treated skin areas with a bandage or plastic wrap without medical advice. Keep both used and unused lidocaine skin patches out of the reach of children or pets. The amount of lidocaine in the skin patches could be harmful to a child or pet who accidentally sucks on or swallows the patch. What is lidocaine topical? Lidocaine is a local anesthetic (numbing medication). There are many brands and forms of lidocaine available. Not all brands are listed on this leaflet. Lidocaine topical (for use on the skin) is used to reduce pain or discomfort caused by skin irritations such as sunburn, insect bites, poison joshua, poison oak, poison sumac, and minor cuts, scratches,or valdovinos. Lidocaine topical is also used to treat rectal discomfort caused by hemorrhoids. Lidocaine intradermal device can be used in minor medical procedures such as venipuncture or peripheral intravenous cannulation. Lidocaine topical may also be used for purposes not listed in this medication guide. What should I discuss with my healthcare provider before using lidocaine topical? You should not use lidocaine topical if you are allergic to any type of numbing medicine. Fatal overdoses have occurred when numbing medicines were used without the advice of a medical doctor (such as during a cosmetic procedure like laser hair removal). However, overdose has also occurred in women treated with a numbing medicine before having a mammography. Be aware that many cosmetic procedures are performed without a medical doctor present. Tell your doctor if you have ever had: a blood cell disorder called methemoglobinemia (in you or a family member); liver disease; or if you take a heart rhythm medicine. Tell your doctor if you are or . If you apply lidocaine topical to your chest, avoid areas that may come into contact with the baby's mouth. How should I use lidocaine topical? Use this medicine exactly as directed on the label, or as it has been prescribed by your doctor. Donot apply this medicine in larger amounts than recommended. Improper use of lidocaine topical may result in . Lidocaine topical comes in many different forms (gel, spray, cream, lotion, ointment, liquid, skin patch, and others). Do not take by mouth. Topical medicine is for use only on the skin. If this medicine gets in your eyes, nose, mouth, rectum, or vagina, rinse with water. Read and carefully follow any Instructions for Use provided with your medicine. Ask your doctor or pharmacist if you do not understand these instructions. Use the smallest amount of medicine needed to numb the skin or relieve pain. Your body may absorb too much of this medicine if you use too much, if you apply it over large skin areas, or if you applyheat, bandages, or plastic wrap to treated skin areas. Skin that is cut or irritated may also absorb more topical medication than healthy skin. Do not apply this medicine to swollen skin areas or deep puncture wounds. Avoid using the medicine on skin that is raw or blistered, such as a severe burn or abrasion. Do not cover treated skin unless your doctor has told you to. Lidocaine topical may be applied with your finger tips or a cotton swab. Lidocaine intradermal device is applied by a healthcare provider. Store at room temperature away from moisture and heat. Keep both used and unused lidocaine topical skin patches out of the reach of children or pets. The amount of lidocaine in the skin patches could be harmful to a child or pet who accidentally sucks onor swallows the patch. Seek emergency medical attention if this happens. What happens if I miss a dose? Since lidocaine topical is used when needed, you may not be on a dosing schedule. Skip any missed dose if it's almost time for your next dose. Do not use two doses at one time. What happens if I overdose? Seek emergency medical attention or call the Poison Help line at . An overdose of numbing medicine can cause fatal side effects if too much of the medicine is absorbed through your skinand into your blood. Overdose symptoms may include uneven heartbeats, seizure (convulsions), slowed breathing, coma, or respiratory failure (breathing stops). Lidocaine applied to the skin is not likely to cause an overdose unless you apply more than the recommended dose. What should I avoid while using lidocaine topical? Avoid touching the sticky side of a lidocaine skin patch while applying it. Avoid accidentally injuring treated skin areas while they are numb. Avoid coming into contact with very hot or very cold surfaces. What are the possible side effects of lidocaine topical? Get emergency medical help if you have signs of an allergic reaction: hives; difficulty breathing; swelling of your face, lips, tongue, or throat. Call your doctor at once if you have: severe headache or vomiting; severe burning, stinging, or irritation where the medicine was applied; swelling or redness; sudden dizziness or drowsiness after medicine is applied; confusion, problems with speech or vision, ringing in your ears; or unusual sensations of temperature. Common side effects include: mild irritation where the medication is applied; or numbness in places where the medicine is accidentally applied. This is not a complete list of side effects and others may occur. Call your doctor for medical advice about side effects. You may report side effects to FDA at 4-104-JWL-9743. What other drugs will affect lidocaine topical? Medicine used on the skin is not likely to be affected by other drugs you use. But many drugs can interact with each other. Tell each of your health care providers about all medicines you use, including prescription and dqrn-xjf-fchnhbe medicines, vitamins, and herbal products. Where can I get more information? Your pharmacist can provide more information about lidocaine topical. Remember, keep this and all other medicines out of the reach of children, never share your medicines with others, and use this medication only for the indication prescribed. Every effort has been made to ensure that the information provided by [employer]. ('[employer]') is accurate, up-to-date, and complete, but no guarantee is made to that effect. Drug information contained herein may be time sensitive. [employer] information has been compiled for use by healthcare practitioners and consumers in the [place] and therefore [employer] does not warrant that uses outside of the [place] are appropriate, unless specifically indicated otherwise. [employer] drug information does not endorse drugs, diagnose patients or recommend therapy. [employer] drug information isan informational resource designed to assist licensed healthcare practitioners in caring for their p atients and/or to serve consumers viewing this service as a supplement to, and not a substitute for, the expertise, skill, knowledge and judgment of healthcare practitioners. The absence of a warningfor a given drug or drug combination in no way should be construed to indicate that the drug or drug combination is safe, effective or appropriate for any given patient. [employer] does not assume any responsibility for any aspect of healthcare administered with the aid of information [employer] provides. The information contained herein is not intended to cover all possible uses, directions, precautions, warnings, drug interactions, allergic reactions, or adverse effects. If you have questions about the drugs you are taking, check with your doctor, nurse or pharmacist. Copyright 5568-7216 [employer]. Version: 05.29. Revision Date: 04/17/2023. acetaminophen and hydrocodone (a SEET a MIN oh fen and marleni droe KOE done) Lortab Elixir, Verdrocet What is the most important information I should know about acetaminophen and hydrocodone? MISUSE OF OPIOID MEDICINE CAN CAUSE ADDICTION, OVERDOSE, OR . Keep the medication in a place where others cannot get to it. Taking opioid medicine during may cause life-threatening withdrawal symptoms in the . Fatal side effects can occur if you use opioid medicine with alcohol, or with other drugs that cause drowsiness or slow your breathing. Stop taking this medicine and call your doctor right away if you have skin redness or a rash that spreads and causes blistering and peeling. What is acetaminophen and hydrocodone? Acetaminophen and hydrocodone is a combination medicine used to relieve moderate to severe pain. Acetaminophen and hydrocodone contains an opioid medicine, and may be habit-forming. Acetaminophen and hydrocodone may also be used for purposes not listed in this medication guide. What should I discuss with my healthcare provider before taking acetaminophen and hydrocodone? You should not use this medicine if you are allergic to acetaminophen or hydrocodone, or if you have: severe asthma or breathing problems; or a blockage in your stomach or intestines. Tell your doctor if you have ever had: breathing problems, sleep apnea (breathing stops during sleep); liver disease; a drug or alcohol addiction; kidney disease; a head injury or seizures; urination problems; or problems with your thyroid, pancreas, or gallbladder. If you use opioid medicine while you are , your baby could become dependent on the drug. This can cause life-threatening withdrawal symptoms in the baby after it is born. Babies born dependent on opioids may need medical treatment for several weeks. Ask a doctor before using opioid medicine if you are . Tell your doctor if you notice severe drowsiness or slow breathing in the nursing baby. How should I take acetaminophen and hydrocodone? Follow all directions on your prescription label. Never take this medicine in larger amounts, or for longer than prescribed. An overdose can damage your liver or cause . Tell your doctor if you feel an increased urge to use more of this medicine. Never share this medicine with another person, especially someone with a history of drug abuse or addiction. MISUSE CAN CAUSE ADDICTION, OVERDOSE, OR . Keep the medicine in a place where others cannot get to it. Selling or giving away this medicine is against the law. Measure liquid medicine carefully. Use the dosing syringe provided, or use a medicine dose-measuring device (not a kitchen spoon). If you need surgery or medical tests, tell the doctor ahead of time that you are using this medicine. You should not stop using this medicine suddenly. Follow your doctor's instructions about tapering your dose. Store at room temperature away from moisture and heat. Keep track of your medicine. You should be aware if anyone is using it improperly or without a prescription. Do not keep leftover opioid medication. Just one dose can cause in someone using this medicine accidentally or improperly. Ask your pharmacist where to locate a drug take-back disposal program.If there is no take-back program, flush the unused medicine down the toilet. What happens if I miss a dose? Since this medicine is used for pain, you are not likely to miss a dose. Skip any missed dose if itis almost time for your next dose. Do not use two doses at one time. What happens if I overdose? Seek emergency medical attention or call the Poison Help line at . An overdose of this medicine can be fatal, especially in a child or other person using the medicine without a prescription. Overdose symptoms may include nausea, vomiting, sweating, severe drowsiness, pinpoint pupils, slow breathing, or no breathing. Your doctor may recommend you get naloxone (a medicine to reverse an opioid overdose) and keep it with you at all times. A person caring for you can give the naloxone if you stop breathing or don't wake up. Your caregiver must still get emergency medical help and may need to perform CPR (cardiopulmonary resuscitation) on you while waiting for help to arrive. Anyone can buy naloxone from a pharmacy or local health department. Make sure any person caring foryou knows where you keep naloxone and how to use it. What should I avoid while taking acetaminophen and hydrocodone? Avoid driving or operating machinery until you know how this medicine will affect you. Dizziness ordrowsiness can cause falls, accidents, or severe injuries. Do not drink alcohol. Dangerous side effects or could occur. Ask a doctor or pharmacist before using any other medicine that may contain acetaminophen (sometimes abbreviated as APAP). Taking certain medications together can lead to a fatal overdose. What are the possible side effects of acetaminophen and hydrocodone? Get emergency medical help if you have signs of an allergic reaction: hives; difficulty breathing; swelling of your face, lips, tongue, or throat. Opioid medicine can slow or stop your breathing, and may occur. A person caring for you should give naloxone and/or seek emergency medical attention if you have slow breathing with long pauses,blue colored lips, or if you are hard to wake up. In rare cases, acetaminophen may cause a severe skin reaction that can be fatal. This could occur even if you have taken acetaminophen in the past and had no reaction. Stop taking this medicine and call your doctor right away if you have skin redness or a rash that spreads and causes blistering andpeeling. Call your doctor at once if you have: noisy breathing, sighing, shallow breathing, breathing that stops; a light-headed feeling, like you might pass out; liver problems--nausea, upper stomach pain, tiredness, loss of appetite, dark urine, dario-colored stools, jaundice (yellowing of the skin or eyes); low cortisol levels-- nausea, vomiting, loss of appetite, dizziness, worsening tiredness or weakness; o high levels of serotonin in the body--agitation, hallucinations, fever, sweating, shivering, fast heart rate, muscle stiffness, twitching, loss of coordination, nausea, vomiting, diarrhea. Serious breathing problems may be more likely in older adults and in those who are debilitated or have wasting syndrome or chronic breathing disorders. Common side effects include: dizziness, drowsiness, feeling tired; nausea, vomiting, stomach pain; constipation; or headache. This is not a complete list of side effects and others may occur. Call your doctor for medical advice about side effects. You may report side effects to FDA at 3-367-FJA-8752. What other drugs will affect acetaminophen and hydrocodone? You may have breathing problems or withdrawal symptoms if you start or stop taking certain other medicines. Tell your doctor if you also use an antibiotic, antifungal medication, heart or blood pressure medication, seizure medication, or medicine to treat HIV or hepatitis C. Opioid medication can interact with many other drugs and cause dangerous side effects or . Be sure your doctor knows if you also use: cold or allergy medicines, bronchodilator asthma/COPD medication, or a diuretic ('water pill'); medicines for motion sickness, irritable bowel syndrome, or overactive bladder; other opioids--opioid pain medicine or prescription cough medicine; a sedative like Valium--diazepam, alprazolam, lorazepam, Xanax, Klonopin, Versed, and others; drugs that make you sleepy or slow your breathing--a sleeping pill, muscle relaxer, medicine to treat mood disorders or mental illness; drugs that affect serotonin levels in your body--a stimulant, or medicine for depression, Parkinson's disease, migraine headaches, serious infections, or nausea and vomiting. This list is not complete. Other drugs may affect acetaminophen and hydrocodone, including prescription and ozwt-cpa-wwfcegu medicines, vitamins, and herbal products. Not all possible interactions are listed here. Where can I get more information? Your doctor or pharmacist can provide more information about acetaminophen and hydrocodone. Remember, keep this and all other medicines out of the reach of children, never share your medicines with others, and use this medication only for the indication prescribed. Every effort has been made to ensure that the information provided by [employer]. ('[employer]') is accurate, up-to-date, and complete, but no guarantee is made to that effect. Drug information contained herein may be time sensitive. [employer] information has been compiled for use by healthcare practitioners and consumers in the [place] and therefore [employer] does not warrant that uses outside of the [place] are appropriate, unless specifically indicated otherwise. [employer] drug information does not endorse drugs, diagnose patients or recommend therapy. [employer] drug information isan informational resource designed to assist licensed healthcare practitioners in caring for their p atients and/or to serve consumers viewing this service as a supplement to, and not a substitute for, the expertise, skill, knowledge and judgment of healthcare practitioners. The absence of a warningfor a given drug or drug combination in no way should be construed to indicate that the drug or drug combination is safe, effective or appropriate for any given patient. [employer] does not assume any responsibility for any aspect of healthcare administered with the aid of information [employer] provides. The information contained herein is not intended to cover all possible uses, directions, precautions, warnings, drug interactions, allergic reactions, or adverse effects. If you have questions about the drugs you are taking, check with your doctor, nurse or pharmacist. Copyright [id number] [employer]. Version: 19.. Revision Date: 03/18/2023. Education Materials Rib Fracture You broke one or more ribs. This is called a rib fracture. Rib fractures don't need a cast like other bones. They will heal by themselves in about 4 to 6 weeks. The first 3 to 4 weeks will be the most painful. During this time deep breathing, coughing, or changing position from sitting to lying down, may cause the broken ends to move slightly. Home care Rest. You should not be doing any heavy lifting or strenuous exertion until the pain goes away. It hurts to breathe when you have a broken rib. This puts you at risk of getting pneumonia from poor airflow through your lungs. To prevent this: oTake several very deep breaths once an hour while you're awake. Breathe out through pursed lips amy you are blowing up a balloon. If possible, actually blow up a balloon or a rubber glove. This exercise builds up pressure inside the lung and prevents collapse of the small air sacs of the lung. This exercise may cause some pain at the site of injury. This is normal. oYou may have gotten a breathing exercise device called an incentive spirometer. Use it at least 4 times a day, or as directed. Apply an ice pack over the injured area for 15 to 20 minutes every 1 to 2 hours. You should do thisfor the first 24 to 48 hours. To make an ice pack, put ice cubes in a plastic bag that seals at thetop. Wrap the bag in a clean, thin towel or cloth. Never put ice or an ice pack directly on the skin. Keep using ice packs as needed for the relief of pain and swelling. You may use wzhe-tcq-pwqdwhv pain medicine to control pain, unless another pain medicine was prescribed. If you have chronic liver or kidney disease or ever had a stomach ulcer or GI (gastrointestinal) bleeding, talk with your healthcare provider before using these medicines. If your pain is not controlled, contact your healthcare provider. Sometimes a stronger pain medicine may be needed. A nerve block can be done in case of severe pain. It will numb the nerve between the ribs. Follow-up care Follow up with your healthcare provider, or as advised. In rare cases, a broken rib will cause complications in the first few days that may not be clearly seen during your initial exam. This can include collapsed lung, bleeding around the lung or into the belly (abdomen), or pneumonia. So watch forthe signs below. If X-rays were taken, you will be told of any new findings that may affect your care. Call 911 Call 911 if you have: Dizziness, weakness or fainting Shortness of breath with or without chest discomfort New or worsening abdominal pain Discomfort in other areas of your upper body such as your shoulders, jaw, neck, or arms When to seek medical advice Call your healthcare provider right away if any of these occur: Increasing chest pain with breathing Fever of 100.4 F (38 C) or above, or as directed by your healthcare provider Congested cough, nausea, or vomiting [id number] [employer]. [address] [place] [address], [place] [address]. All rights reserved. This information is not intended as a substitute for professional medical care. Always follow yourhealthcare professional's instructions. Additional Information VACCINATE! IT SAVES LIVES! Members of the community who have not yet received the COVID-19 vaccine and would like to receive it can visit one of [facility] vaccine clinics. There are many vaccine clinic locations within the [facility]. For locations and available times, please visit www.[email or web address].[place].gov/. It is important to note that some COVID mobile vaccine clinics are held outdoors and may be canceled in rainy or stormy conditions. To learn more about pediatric vaccinations (ages 5-11), we invite you to visit the [facility] webpage. [email or web address]/[email or web address] [email or web address] learn more about the COVID-19 vaccine, we invite you to visit the CDC website for a list of frequently asked questions. https://www.cdc.gov/coronavirus/2019-ncov/vaccines/faq.html [facility] Patient Portal Access Instructions: Stay connected with your healthcare team and access your personal medical information anytime with the [employer] Patient Portal. If you would like a full copy of your medical records please contact the [facility] Medical Records Department Saturday through Saturday between 8a.m. and 4:30p.m. Please follow the directions below to access the portal: 1.Access the email account you provided upon registration to the hospital.2.Look for an invitation email from [facility].3.Open the email and access the invitation link: Accept Invitation to [facility].Fill in the required aleln to create your account. Sign into [email or web address] with your username and password that you created in the above steps to stay up to date. You can then view a summary of results, a summary of your visits, and the ability to download your summaries to your computer or send the information securely to a physician. Remember that your healthcare information is confidential, so carefully consider who you will allow to register on the [facility] [facility] Patient Portal for access to your information. You can also access the [facility] Patient Portal on the [employer]. Simply click on Health Records under [facility] and then click on the [employer] logo. HOW TO SAFELY DISPOSE OF PRESCRIPTION MEDICATIONS Please use one of the following methods to safely dispose of your unused medications. 1.Use a drug disposal kit: the drug disposal pouch allows you to safely discard your old and unuseddrugs. Ask your nurse to give you one when you are discharged.2.Visit a local take-back location: Many local pharmacies and police departments have programs that collect old and unwanted prescriptiondrugs. Call your local pharmacy or go to http://[employer].Shopping Buddy/8L7Qd3e to find one close to you.3.Make use of household items: Use cat litter or old coffee grounds to dispose medications if other options arenot available. Mix your drugs with these household products, seal them in an airtight container andthrow it into the garbage. Call [facility]: [phone] to be sure your drugs can be disposed of in this way. Some medicines may require a different approach.4.Never flush your medications down the toilet. IF YOU HAVE BEEN PRESCRIBED AN OPIOIDS FOR PAIN If you have been prescribed an opioid (such as hydrocodone, oxycodone or morphine), it is critical to understand the possible side effects and risks of opioid pain medications. Even when taken as directed, opioids can have several side effects including: Tolerance, meaning you might need to take more of a medication for the same pain relief. Nausea, vomiting and/or constipation. Sleepiness, dizziness, dry mouth, confusion, depression or itching. Physical dependence, meaning you have withdrawal symptoms when a medication is stopped ? this can develop within a few days. KNOW YOUR RESPONSIBILITIES It is important to know exactly how much and how often to take the opioid pain medications you are prescribed. Never take opioids in higher amounts or more often than prescribed. Do not combine opioids with alcohol or other drugs that cause drowsiness, such as benzodiazepines, also known as benzos,including diazepam and alprazolam, muscle relaxants or sleep aids. Never sell or share prescriptionopioids. This is illegal. Store opioids in a secure place and out of reach of others (including children, family, friends and visitors). The last page(s) of this document has been signed and retained as a CHART COPY Signatures Patient Education Materials Rib Fracture Medication Leaflets lidocaine topical, acetaminophen and hydrocodone My discharge plan and instructions have been reviewed and explained to me and I,THO TAMMI understand my current condition and have read and understand these discharge instructions. I have received a written copy of the plan/instructions. If I have questions, I am aware that I should contact my d octor. Patient/Can Inspector Signature: Date/Time: Relationship to Patient: Witness Name/Signature: Date/Time: [place]12-25-2023 Note ORIGINAL EXAMINATION: 3 XRAY VIEWS OF LEFT RIBS WITH 1 XRAY VIEWS OF THE CHEST 07/22/2023 3:51 am COMPARISON: None. HISTORY: ORDERING SYSTEM PROVIDED HISTORY: Reason for Exam: pain Injury due to a fall. FINDINGS: Chest x-ray demonstrates the heart size is normal. The lungs are well aerated with no infiltrate or edema. There is no pleural fluid or pneumothorax. X-rays of the left ribs demonstrate mildly displaced fractures of the left 5th and 6th ribs laterally and a nondisplaced fracture of the left 7th rib laterally. No soft tissue gas is seen in the chest wall. IMPRESSION: Acute fractures of left 5th, 6th, and 7th ribs. No acute cardiopulmonary findings. Interpreted by: Christophe Mooney MD Preliminary Report By: Christophe Mooney MD Electronically signed By Christophe Mooney MD Dictated Date: 07/22/2023 3:56:26 AM Prelim Date: 07/22/2023 4:00:49 AM Sign Date: 07/22/2023 4:00:49 AM Ordering Provider: [facility]09-25-2023 Note ORIGINAL EXAMINATION: BONE DENSITOMETRY 04/22/2023 1:22 pm TECHNIQUE: A bone density dual x-ray absorptiometry (DEXA) scan was performed of the lumbar spine and left hip. COMPARISON: 01/16/2021. HISTORY: ORDERING SYSTEM PROVIDED HISTORY: Reason for Exam: osteoporosis FINDINGS: BMD (g/cm2) Lumbar Spine L1-L4: 0.953. T Score Lumbar Spine L1-L4: -0.9 BMD (g/cm2) Left Femoral Neck: 0.608. T Score Left Femoral Neck: -2.2 BMD (g/cm2) Left Hip: 0.726. T Score Left Hip: -1.8 BMD Change from previous Hip: -1.6% BMD Change from previous Lumbar spine: 8.8% FRAX: 10 year fracture risk assessment Major osteoporotic fracture: 12% Hip fracture: 3.5% IMPRESSION: Osteopenia by WHO criteria. *By the World Health Organization criteria: (Comparing with young normal sex matched population) - Normal: T-score at or above -1 SD (standard deviation) - Osteopenia: T-score between -1 and -2.5 SD - Osteoporosis: T-score at or below -2.5 SD Interpreted by: Nelson Lagunas DO Preliminary Report By: Nelson Lagunas DO Electronically signed By Nelson Lagunas DO Dictated Date: 04/22/2023 2:34:57 PM Prelim Date: 04/22/2023 2:35:47 PM Sign Date: 04/22/2023 2:35:47 PM Ordering Provider: CHRISTIANO MATHISCent[place]Evaluation + Plan note No data available for this section [place] Evaluation note* Diagnosis Onset Date Resolution Status Dysuria acute Dysuria [facility] Work Phone: Evaluation note* Diagnosis Onset Date Resolution Status Osteoporosis acute Preventative health care [facility] Work Phone: Evaluation note* Diagnosis Onset Date Resolution Status Osteoporosis acute Preventative health care [facility] Osteoporosis acute Osteoporosis acute Acute cystitis [facility] Work Phone: evaluation note* Diagnosis Onset Date Resolution Status Osteoporosis acute Osteoporosis acute Acute cystitis acute [facility] Work Phone: Evaluation note* Diagnosis Onset Date Resolution Status Acute cystitis acute Urinary tract infection none active [facility] Work Phone: evaluation note* Diagnosis Onset Date Resolution Status Urinary tract infection none active Osteoporosis acute [facility] Work Phone: evaluation note* Diagnosis Onset Date Resolution Status Urinary tract infection none active Osteoporosis acute Urinary tract infection none active [facility] Work Phone: evaluation note* Diagnosis Onset Date Resolution Status Urinary tract infection none active Contact with or exposure to other viral diseases acute URI (upper respiratory infection) acute Osteoporosis acute Preventative health care chr onic [facility] Work Phone: evalucswtm noteNo assessment information available [facility] Work Phone: Hospital Discharge instructions No data available for this section [place] Progress note No data available for this section [place] Reason for referral (narrative)No reason for referral [facility] Work [facility]: Chief Complaint and Reason for Visit Chief Complaint Urinary tract infect ion Urinary tract infection Reason for Visit Dysuria Dysuria Chief Complaint Urinary tract infect ion Urinary tract infection LABSPEC Reason for Visit Dysuria Dysuria Chief Complaint TETNUS SHOT FLU SHOT YEARLY CHK UP Reason for Visit Osteoporosis Preventative health care Chief Complaint FLU SHOT YEARLY CHK UP DISCUSS PROLIA DISCUSS PROLIA UTI SYMPTOMS Reason for Visit Osteoporosis Preventative health care Osteoporosis Osteoporosis Acute cystitis Chief Complaint DISCUSS PROLIA DISCUSS PROLIA UTI SYMPTOMS Reason for Visit Osteoporosis Osteoporosis Acute cystitis Chief Complaint UTI SYMPTOMS Urinary tract infection Reason for Visit Acute cystitis Urinary tract infection Chief Complaint Urinary tract infect ion PROLIA Reason for Visit Urinary tract infect ion Osteoporosis Chief Complaint Urinary tract infect ion PROLIA Urinary tract infection Reason for Visit Urinary tract infect ion Osteoporosis Urinary tract infection Chief Complaint Urinary tract infect ion FEVER/NAUSEA yearly Reason for Visit Urinary tract infect ion Contact with or exposure to other viral diseases URI (upper respiratory infection) Osteoporosis Preventative health care Chief Complaint Admit Date PROLIA-$0 January 28, 2025 1:23p m Chief Complaint Admit Date PROLIA-$0 January 28, 2025 1:23p m CONCERN FOR UTI March 30, 2025 12:56pm Reason for Visit Admit Date Osteoporosis January 28, 2025 1:23p m Dysuria March 30, 2025 12:56pm Family History Relationship Condition Age at Onset Recorded Date/T lily sister Osteoporosis Unknown father Malignant neoplasm of skin Unknown mother Cerebrovascular accident (CVA) Unknown grandmother Cerebrovascular accident (CVA) Unknown Summary Purpose Advance Directives No Advanced Directives Records FoundNo Advanced Directives Records FoundNo Advanced Directives Records Found Additional Source Comments Goals (unrecognized section and content) Goals may be documented in a n alternate sectionGoals may be documented in an alternate sectionGoals may be documented in an alternate sectionGoals may be documented in an alternate sectionGoals may be documented in an alternate sectionGoals may be documented in an alternate sectionGoals may be documented in an alternate sectionGoals may be documented in an alternate sectionGoals may be documented in an alternate section No data available for this sectionGoals may be documented in an alternate section No data available for this section No data available for this sectionGoals may be documented in an alternate sectionGoals may be documented in an alternate section Care Teams (unrecognized sec tion and content) Team Status: Active Member Role Status Dates Dr. Christiano Mathis , DO Primary Care Provider Active Team Status: Inactive Member Role Status Dates Dr. Christiano Mathis , DO Primary Care Pr ovider, Attending Provider, Referring Provider Active Team Status: Inactive Member Role Status Dates Dr. Christiano Mathis , DO Primary Care Provider, Referr ing Provider Active HARSH Baker Attending Provider Active Team Status: Inactive Member Role Status Dates Dr. Christiano Mathis , DO Primary Care Provider, Referr ing Provider Active Giovani Lim SUPERVISOR TWISTING DEPARTMENT, SUPERVISOR TWISTING DEPARTMENT-C Attending Provider Active Team Status: Inactive Member Role Status Dates Dr. Christiano Mathis , DO Primary Care Provider Active Giovani Lim SUPERVISOR TWISTING DEPARTMENT, SUPERVISOR TWISTING DEPARTMENT-C Attending Provider, Referring Prov ider Active Team Status: Inactive Member Role Status Dates Dr. Christiano Mathis , DO Primary Care Provider, Referr ing Provider Active Alexis HOUSE PA Attending Provider Active Team Status: Active Member Role Status Dates Dr. Christiano Mathis , DO Primary Care Provider, Attend ing Provider Active Team Status: Inactive Member Role Status Dates Dr. Christiano Mathis DO Primary Care Provider Active Alexis HOUSE, [place] Attending Provider, Referring Provi coleen Active Team Status: Inactive Member Role Status Dates Dr. Christiano Mathis DO Primary Care Provider, Referr ing Provider Active Dr. Pearl Hurst MD Attending Provider Active Team Status: Inactive Member Role Status Dates Dr. Christiano Mathis DO Primary Care Provider, Attend ing Provider Active Team Status: Inactive Member Role Status Dates Dr. Christiano Mathis DO Primary Care Provider, Referr ing Provider Active Sheldon HOUSE, [place] Attending Provider Active Team Status: Active Member Role/Relationship Status Dates Dr. Christiano Mathis DO Primary Care Provider Active Team Status: Inactive Member Role/Relationship Status Dates Dr. Christiano Mathis DO Primary Care Provider Active Start: January 28, 2025 End: January 28, 2025 Dr. Christiano Mathis DO Referring Provider Active Start: January 28, 2025 End: January 28, 2025 BIM NURSE Attending Provider Active Start: 2024 End: January 28, 2025 Team Status: Inactive Member Role/Relationship Status Dates Dr. Christiano Mathis DO Primary Care Provider Active Start: January 26, 2025 Dr. Celeste Cruz MD Attending Provider Active Start: January 26, 2025 Team Status: Inactive Member Role/Relationship Status Dates Dr. Christiano Mathis DO Primary Care Provider Active Start: January 28, 2025 End: January 28, 2025 Dr. Christiano Mathis DO Referring Provider Active Start: January 28, 2025 End: January 28, 2025 Dr. Sameer Olea MD Attending Provider Active Start: January 28, 2025 End: January 28, 2025 Team Status: Inactive Member Role/Relationship Status Dates Dr. Christiano Mathis DO Primary Care Provider Active Start: March 30, 2025 End: March 30, 2025 Dr. Christiano Mathis DO Referring Provider Active Start: March 30, 2025 End: March 30, 2025 JAGDISH Velaqzuez Attending Provider Active Star t: March 30, 2025 End: March 30, 2025 INFORMATION SOURCE (unrecogn ized section and content) DATE CREATED AUTHOR 03/25/2024 [facility] ([place]) DATE CREATED AUTHOR AUTHOR'S ORGANIZ ATION 05/14/2024 [facility] DATE CREATED AUTHOR AUTHOR'S ORGANIZ ATION 02/06/2025 [facility] FOR RECORDS PERTAINING TO PATIENTS WHO ARE OR HAVE BEEN ENROLLED IN A CHEMICAL DEPENDENCY/SUBSTANCEABUSE PROGRAM, SOME INFORMATION MAY BE OMITTED. This clinical summary was aggregated from multiple sources. Caution should be exercised in using it in the provision of clinical care. This summary normalizes information from multiple sources, and as a consequence, information in this document may materially change the coding, format and clinical context of patient data. In addition, data may be omitted in some cases. CLINICAL DECISIONS SHOULD BE BASED ON THE PRIMARY CLINICAL RECORDS. [employer] [facility]. provides no warranty or guarantee of the accuracy or completeness of information in this document.
== END | disposition home or self-care (01) ==
LOC: LABSPEC 13:25
PROVIDERS: PCP Family Medicine; Visit Provider Nurse Practitioner
DX: R30.0 Dysuria (principal)
CPT/HCPCS: 87086

== ENCOUNTER → 2025-07-14 | Outpatient (CLI) | payer MEDICARE, OTHER, SELFPAY ==
[2025-07-14 10:14] LABS: Hematocrit 40.5 % (37-47); Hemoglobin 13.3 g/dL (12.0-15.0); Immature Granulocytes Count 0.010 X10^3/uL (0.0-0.0); Mean Corp Hgb Conc 32.8 g/dL (32-36); Mean Corpuscular Volume 97.6 fL (81-99); Mean Platelet Vol. 10.7 fl (6.2-12.0); NRBC Flagged by Analyzer 0 % (0-5); Platelet Count 187 K/mm3 (150-450); RBC Distribution Width CV 12.1 % (11.6-14.6); RBC Distribution Width SD 43.4 fl (35.1-43.9); Red Blood Count 4.15 M/mm3 (4.2-5.4); White Blood Count 4.5 K/mm3 (4.4-11.0)
[2025-07-14 10:57] LABS: AST(SGOT) 21 U/L (<=31); Alanine Aminotransfer ALT/SGPT 13 U/L (<=34); Albumin, Serum 4.3 g/dL (3.4-4.8); Alkaline Phosphatase 50 U/L (35-104); Anion Gap 10 (5-15); BUN 17 mg/dL (4-19); BUN/Creat Ratio 23.8 RATIO (10-20); Calcium,Total 9.4 mg/dL (7.6-11.0); Carbon Dioxide 27.5 mmol/L (21.0-32.0); Chloride 103 mmol/L (98-108); Cholesterol 156 mg/dL (<=200); Globulin 2.7 g/dL (2.2-4.2); Glucose 96 mg/dL (70-99); Low Density Lipoprotein Calc. 74 mg/dL; Potassium 4.5 mmol/L (3.3-5.1); Triglycerides 81 mg/dL; Very Low Density Lipoprotein 16 mg/dL (5-40); Vitamin D,25 Hydroxy 35.5 ng/mL (30-100); cholesterol:hdl ratio screen 2.35
== END | disposition home or self-care (01) ==
LOC: MTLAB 09:01
PROVIDERS: PCP Family Medicine; Referring Provider Family Medicine; Visit Provider Family Medicine
DX: Z00.00 Encounter for general adult medical examination without abnormal findings (principal); Z00.8 Encounter for other general examination; M81.0 Age-related osteoporosis without current pathological fracture
CPT/HCPCS: 36415; 80053; 80061; 82306; 85025